=== PATIENT | female | born 1935 | race Caucasian/White ===

== ENCOUNTER 2018-05-24 12:16 | Inpatient (IN) | payer MEDICARE, OTHER ==
--- NOTE | 2018-05-24 12:40 | EDM.PDOC ---
ED HPI GENERAL MEDICAL PROBLEM - General Stated Complaint: WEAKNESS Time Seen by Provider: 05/24/18 12:35 - History of Present Illness INITIAL COMMENTS - FREE TEXT/NARRATIVE: pt comes from assisted living, with concerns for gen weakness, she si normally independent and today she is unable to move around due to gen weakness, pt was seen yesterday by her PCP and treated for UTI and CHF. pt report chronic cough and chronic dyspnea with exertion, denies fever chills or any other associated sx or concerns. has been tolerating her diet well. - Related Data Allergies Allergy/AdvReac Type Severity Reaction Status Date / Time No Known Allergies Allergy Verified 05/24/18 12:36 Home Meds: Home Meds Acetaminophen 1,000 mg PO ASDIRECTED PRN 05/24/18 [History] Cefdinir [Omnicef] 300 mg PO Q12H 05/24/18 [History] Cholecalciferol (Vitamin D3) [Vitamin D3] 1,000 units PO DAILY 05/24/18 [History ] Cyanocobalamin (Vitamin B-12) [Vitamin B-12] 1,000 mcg PO DAILY 05/24/18 [ History] Furosemide 20 mg PO DAILY 05/24/18 [History] Levothyroxine 125 mcg PO ACBREAKFAST 05/24/18 [History] Multivitamin [Multivitamins] 1 each PO DAILY 05/24/18 [History] Naproxen 250 mg PO DAILY 05/24/18 [History] Nitroglycerin [Nitrostat] 0.4 mg SL ASDIRECTED PRN 05/24/18 [History] Omeprazole 20 mg PO DAILY 05/24/18 [History] Potassium Chloride [Klor-Con M20] 20 meq PO DAILY 05/24/18 [History] Sennosides [Senna] 8.6 mg PO DAILY 05/24/18 [History] Sertraline [Zoloft] 25 mg PO DAILY 05/24/18 [History] Simethicone [Gas Relief] 80 mg PO DAILY 05/24/18 [History] hydroCHLOROthiazide [Hydrochlorothiazide] 12.5 mg PO DAILY 05/24/18 [History] Past Medical History HEENT History: Reports: Impaired Vision Cardiovascular History: Reports: Hypertension Gastrointestinal History: Reports: Hiatal Hernia 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: Musculoskeletal History: Reports: Back Pain, Chronic Endocrine/Metabolic History: Reports: Hypothyroidism - Infectious Disease History Infectious Disease History: Reports: Chicken Pox, Measles, Mumps - Past Surgical History HEENT Surgical History: Reports: Cataract Surgery Musculoskeletal Surgical History: Reports: Knee Replacement, Other (See Below) Social & Family History - Family History Family Medical History: Noncontributory - Caffeine Use Caffeine Use: Reports: Coffee ED ROS GENERAL - Review of Systems Review Of Systems: See Below Constitutional: Reports: Fatigue Respiratory: Reports: Shortness of Breath, Cough Cardiovascular: Reports: No Symptoms. Denies: Chest Pain GI/Abdominal: Reports: No Symptoms. Denies: Abdominal Pain, Anorexia Musculoskeletal: Reports: No Symptoms Skin: Reports: No Symptoms Neurological: Reports: No Symptoms. Denies: Confusion, Headache ED EXAM, GENERAL - Physical Exam Exam: See Below Exam Limited By: No Limitations General Appearance: Alert, Mild Distress Nose: Normal Inspection Throat/Mouth: Normal Oropharynx Neck: Carotid Bruit Respiratory/Chest: Rhonchi Cardiovascular: Regular Rate, Rhythm, No Murmur, Other (trace ankle edema ) GI/Abdominal: Normal Bowel Sounds, Soft, Non-Tender Extremities: Normal Inspection, Pedal Edema. No: Leg Pain Skin Exam: Warm Course - Vital Signs Text/Narrative:: labs / CXR results were explained top . pt is wended and deconditioned , assisted living is anable to care for pt safely. will admit to the care of Dr Rao . Dx CHF, gen weakness . ? UTI. Last Recorded V/S: Last Vital Signs Temp 37.1 C 05/24/18 12:16 Pulse 80 05/24/18 12:16 Resp 18 05/24/18 12:16 BP 113/63 05/24/18 12:16 Pulse Ox 93 L 05/24/18 12:16 - Orders/Labs/Meds Orders: Active Orders 24 hr Category Date Time Status Chest 1V Frontal [CR] Stat Exams 05/24/18 12:41 Taken PRO B-TYPE NATRIUR PEPT,BNPPRO [CHEM] Stat Lab 05/24/18 14:24 Ordered Labs: Laboratory Tests 05/24/18 05/24/18 05/24/18 Range/Units 12:50 12:50 12:50 WBC 8.7 (4.5-12.0) X10-3/uL RBC 4.19 (3.23-5.20) x10(6)uL Hgb 12.5 (11.5-15.5) g/dL Hct 38.2 (30.0-51.3) % MCV 90.9 (80-96) fL MCH 29.9 (27.7-33.6) pg MCHC 32.9 (32.2-35.4) g/dL RDW 12.8 (11.5-15.5) % Plt Count 240 (125-369) X10(3)uL MPV 7.7 (7.4-10.4) fL Neut % (Auto) 70.2 (46-82) % Lymph % (Auto) 20.3 (13-37) % [place] % (Auto) 7.7 (4-12) % Eos % (Auto) 1 (1.0-5.0) % Baso % (Auto) 1 (0-2) % Neut # (Auto) 6.0 (1.6-8.3) # Lymph # (Auto) 1.8 (0.6-5.0) # [place] # (Auto) 0.7 (0.0-1.3) # Eos # (Auto) 0.1 (0.0-0.8) # Baso # (Auto) 0.1 (0.0-0.2) # Sodium 135 (135-145) mmol/L Potassium 3.5 (3.5-5.3) mmol/L Chloride 97 L (100-110) mmol/L Carbon Dioxide 30 (21-32) mmol/L BUN 29 H (7-18) mg/dL Creatinine 1.1 H (0.55-1.02) mg/dL Est Cr Clr Drug Dosing TNP Estimated GFR (MDRD) 48 L (>60) BUN/Creatinine Ratio 26.4 H (9-20) Glucose 124 H (80-116) mg/dL Calcium 8.9 (8.6-10.2) mg/dL Total Bilirubin 0.4 (0.1-1.3) mg/dL AST 30 H (5-25) IU/L ALT 10 L (12-36) U/L Alkaline Phosphatase 80 (56-112) IU/L Total Protein 6.5 (6.0-8.0) g/dL Albumin 3.0 L (3.2-4.6) g/dL Globulin 3.5 g/dL Albumin/Globulin Ratio 0.9 TSH, Ultra Sensitive 0.60 (0.36-3.74) IU/mL Urine Color (YELLOW) Urine Appearance (CLEAR) Urine pH (5.0-6.5) Ur Specific [place] (1.010-1.025) Urine Protein (NEGATIVE) mg/dL Urine Glucose (UA) (NORMAL) mg/dL Urine Ketones (NEGATIVE) mg/dL Urine Occult Blood (NEGATIVE) Urine Nitrite (NEGATIVE) Urine Bilirubin (NEGATIVE) Urine Urobilinogen (NEGATIVE) mg/dL Ur Leukocyte Esterase (NEGATIVE) Urine WBC (0-5) Ur Squamous Epith Cells (NS,R,O) Urine Bacteria (NS) 05/24/18 Range/Units 13:16 WBC (4.5-12.0) X10-3/uL RBC (3.23-5.20) x10(6)uL Hgb (11.5-15.5) g/dL Hct (30.0-51.3) % MCV (80-96) fL MCH (27.7-33.6) pg MCHC (32.2-35.4) g/dL RDW (11.5-15.5) % Plt Count (125-369) X10(3)uL MPV (7.4-10.4) fL Neut % (Auto) (46-82) % Lymph % (Auto) (13-37) % [place] % (Auto) (4-12) % Eos % (Auto) (1.0-5.0) % Baso % (Auto) (0-2) % Neut # (Auto) (1.6-8.3) # Lymph # (Auto) (0.6-5.0) # [place] # (Auto) (0.0-1.3) # Eos # (Auto) (0.0-0.8) # Baso # (Auto) (0.0-0.2) # Sodium (135-145) mmol/L Potassium (3.5-5.3) mmol/L Chloride (100-110) mmol/L Carbon Dioxide (21-32) mmol/L BUN (7-18) mg/dL Creatinine (0.55-1.02) mg/dL Est Cr Clr Drug Dosing Estimated GFR (MDRD) (>60) BUN/Creatinine Ratio (9-20) Glucose (80-116) mg/dL Calcium (8.6-10.2) mg/dL Total Bilirubin (0.1-1.3) mg/dL AST (5-25) IU/L ALT (12-36) U/L Alkaline Phosphatase (56-112) IU/L Total Protein (6.0-8.0) g/dL Albumin (3.2-4.6) g/dL Globulin g/dL Albumin/Globulin Ratio TSH, Ultra Sensitive (0.36-3.74) IU/mL Urine Color Yellow (YELLOW) Urine Appearance Slightly cloudy (CLEAR) Urine pH 5.0 (5.0-6.5) Ur Specific [place] 1.020 (1.010-1.025) Urine Protein Negative (NEGATIVE) mg/dL Urine Glucose (UA) Normal (NORMAL) mg/dL Urine Ketones Negative (NEGATIVE) mg/dL Urine Occult Blood Negative (NEGATIVE) Urine Nitrite Negative (NEGATIVE) Urine Bilirubin Negative (NEGATIVE) Urine Urobilinogen Normal (NEGATIVE) mg/dL Ur Leukocyte Esterase Negative (NEGATIVE) Urine WBC 5-10 H (0-5) Ur Squamous Epith Cells Few H (NS,R,O) Urine Bacteria Many H (NS) Departure - Departure Time of Disposition: 14:28 Disposition: Admitted As Inpatient 67 Clinical Impression: CHF (congestive heart failure) - Discharge Information Referrals: Ryan De La Paz PA [Primary Care Provider] - - My Orders Last 24 Hours: My Active Orders 05/24/18 12:41 Chest 1V Frontal [CR] Stat 05/24/18 14:24 PRO B-TYPE NATRIUR PEPT,BNPPRO [CHEM] Stat - Assessment/Plan Last 24 Hours: My Active Orders 05/24/18 12:41 Chest 1V Frontal [CR] Stat 05/24/18 14:24 PRO B-TYPE NATRIUR PEPT,BNPPRO [CHEM] Stat
[2018-05-24] MEDS ORDERED: Albuterol 0.083% 2.5 MG/3 ML Neb Soln NEB PRN (14:29)
[2018-05-24] MEDS ORDERED: Zolpidem 5 MG Tab PO PRN (14:29)
[2018-05-24] MEDS ORDERED: Ondansetron 4 MG/2 ML SDV IV PRN (14:29)
[2018-05-24] MEDS ORDERED: Furosemide 40 MG/4 ML VIAL IVPUSH ONE (14:34)
--- NOTE | 2018-05-24 15:14 | CR ---
INDICATION: Cough. CHEST: AP portable upright view of the chest was obtained 05/24/18 and compared with 04/02/16 and 03/31/16. Bilateral heavy markings interstitially suggest moderately severe interstitial fibrosis and make it impossible to exclude areas of patchy bronchopneumonia superimposed. However, no consolidating pneumonia or significant sized effusion could be identified. The heart did not appear grossly enlarged but may be at the upper limits of normal in size. The aorta is tortuous with calcification in the arch. There appears to be decreased infiltration at the left costophrenic angle, compared with the previous study. IMPRESSION: 1. No definite acute process but impossible to exclude areas of patchy bronchopneumonia superimposed on pulmonary fibrosis. 2. Probable ASHD. MTDD
[2018-05-24] MEDS: Sodium Chloride 0.9% 10 ML Syringe FLUSH PRN ×2 (15:31→16:44)
[2018-05-24] MEDS: Ciprofloxacin in D5W 200 MG in Premix Bag 1 BAG IV SCH ×2 (16:42)
--- NOTE | 2018-05-24 18:20 | PCM.HP ---
H&P History of Present Illness - General Date of Service: 05/24/18 Admit Problem/Dx: Admission Diagnosis/Problem Admission Diagnosis/Problem CHF, Congestive heart failure Source of Information: Patient, Family History Limitations: Reports: No Limitations - History of Present Illness Initial Comments - Free Text/Narative: This is an 82-year-old female patient that is a resident of [facility]. She 's had progressive weakness for several months. She was seen by Ryan VALENZUELA at [facility] and diagnosed with CHF and UTI. She is put on Lasix 20 mg a day and Omnicef. She's also found to be hypokalemic. She went back to [facility] and got to the point where she couldn't ambulate at all and they can transfer so she is brought to the ER. [facility] related to the ER doc that they were not able to take care of her. She has no concerns today. She denies fevers, chills, runny nose, sore throat, cough, shortness of breath, chest pain, abdominal pain. Her daughter states she has some diarrhea yesterday that resolved. She has no nausea or vomiting. She does leak a little urine and has been that way for a long time. She has no dysuria, pyuria, hematuria. Her daughter states that she got a power wheelchair and since then has been using that and getting progressively weaker. lower back Pain Score (Numeric/FACES): 3 - Related Data Allergies/Adverse Reactions: Allergies Allergy/AdvReac Type Severity Reaction Status Date / Time No Known Allergies Allergy Verified 05/24/18 12:36 Home Medications: Home Meds Acetaminophen 1,000 mg PO ASDIRECTED PRN 05/24/18 [History] Cefdinir [Omnicef] 300 mg PO Q12H 05/24/18 [History] Cholecalciferol (Vitamin D3) [Vitamin D3] 2,000 units PO DAILY 05/24/18 [History ] Cyanocobalamin (Vitamin B-12) [Vitamin B-12] 1,000 mcg PO DAILY 05/24/18 [ History] Furosemide 20 mg PO DAILY 05/24/18 [History] Levothyroxine 125 mcg PO ACBREAKFAST 05/24/18 [History] Multivitamin [Multivitamins] 1 each PO DAILY 05/24/18 [History] Naproxen 250 mg PO BID 05/24/18 [History] Nitroglycerin [Nitrostat] 0.4 mg SL ASDIRECTED PRN 05/24/18 [History] Omeprazole 20 mg PO DAILY 05/24/18 [History] Potassium Chloride [Klor-Con M20] 20 meq PO DAILY 05/24/18 [History] Sennosides/Docusate Sodium [Senna-S] 1 tab PO ASDIRECTED PRN 05/24/18 [History] Sertraline [Zoloft] 25 mg PO DAILY 05/24/18 [History] Simethicone [Gas Relief] 160 mg PO QID 05/24/18 [History] hydroCHLOROthiazide [Hydrochlorothiazide] 12.5 mg PO DAILY 05/24/18 [History] Past Medical History HEENT History: Reports: Impaired Vision Cardiovascular History: Reports: Hypertension Respiratory History: Reports: Pneumonia, Recurrent Gastrointestinal History: Reports: Hiatal Hernia 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: Musculoskeletal History: Reports: Back Pain, Chronic Endocrine/Metabolic History: Reports: Hypothyroidism - Infectious Disease History Infectious Disease History: Reports: Chicken Pox, Measles, Mumps - Past Surgical History HEENT Surgical History: Reports: Cataract Surgery Musculoskeletal Surgical History: Reports: Knee Replacement, Other (See Below) Social & Family History - Family History Family Medical History: Noncontributory - Tobacco Use Smoking Status *Q: Former Smoker Years of Tobacco use: 60 Used Tobacco, but Quit: No Month/Year Tobacco Last Used: 160 - Caffeine Use Caffeine Use: Reports: Coffee - Recreational Drug Use Recreational Drug Use: No Other Recreational Drug Type: Patient denies recreational drug use. H&P Review of Systems - Review of Systems: Review Of Systems: See Below General: Reports: No Symptoms, Weakness HEENT: Reports: No Symptoms Pulmonary: Reports: No Symptoms Cardiovascular: Reports: No Symptoms Gastrointestinal: Reports: Diarrhea Genitourinary: Reports: Incontinence Musculoskeletal: Reports: No Symptoms Skin: Reports: No Symptoms Psychiatric: Reports: No Symptoms Neurological: Reports: No Symptoms Hematologic/Lymphatic: Reports: No Symptoms Immunologic: Reports: No Symptoms Exam - Exam Exam: See Below - Vital Signs Vital Signs: Last Vital Signs Temp 96.5 F 05/24/18 15:10 Pulse 77 05/24/18 15:10 Resp 16 05/24/18 15:10 BP 103/62 05/24/18 15:10 Pulse Ox 95 03/19/19 15:10 Weight: 156 lb - Exam General: Alert, Oriented, Cooperative HEENT: Mucosa Moist & [place], Posterior Pharynx Clear, TMs Clear Neck: Supple, Trachea Midline. No: Carotid Bruit, JVD Lungs: Crackles (The bases bilateral) Cardiovascular: Regular Rate, Regular Rhythm, Normal S1, Normal S2. No: Systolic Murmur GI/Abdominal Exam: Normal Bowel Sounds, Soft, Non-Tender, No Organomegaly, No Distention, No Abnormal Bruit, No Mass Back Exam: Normal Inspection Extremities: Normal Inspection, Normal Range of Motion, Non-Tender, No Pedal Edema Skin: Warm, Dry, Intact Neurological: Normal Speech, Normal Tone Neuro Extensive - Mental Status: Alert, Oriented x3, Normal Mood/Affect, Normal Cognition, Memory Intact Neuro Extensive - Motor, Sensory, Reflexes: Other (I didn't ambulate today.) Psychiatric: Alert, Normal Affect, Normal Mood - Patient Data Lab Results Last 24 hrs: Laboratory Results - last 24 hr 05/24/18 05/24/18 05/24/18 Range/Units 12:50 12:50 12:50 WBC 8.7 (4.5-12.0) X10-3/uL RBC 4.19 (3.23-5.20) x10(6)uL Hgb 12.5 (11.5-15.5) g/dL Hct 38.2 (30.0-51.3) % MCV 90.9 (80-96) fL MCH 29.9 (27.7-33.6) pg MCHC 32.9 (32.2-35.4) g/dL RDW 12.8 (11.5-15.5) % Plt Count 240 (125-369) X10(3)uL MPV 7.7 (7.4-10.4) fL Neut % (Auto) 70.2 (46-82) % Lymph % (Auto) 20.3 (13-37) % [place] % (Auto) 7.7 (4-12) % Eos % (Auto) 1 (1.0-5.0) % Baso % (Auto) 1 (0-2) % Neut # (Auto) 6.0 (1.6-8.3) # Lymph # (Auto) 1.8 (0.6-5.0) # [place] # (Auto) 0.7 (0.0-1.3) # Eos # (Auto) 0.1 (0.0-0.8) # Baso # (Auto) 0.1 (0.0-0.2) # Sodium 135 (135-145) mmol/L Potassium 3.5 (3.5-5.3) mmol/L Chloride 97 L (100-110) mmol/L Carbon Dioxide 30 (21-32) mmol/L BUN 29 H (7-18) mg/dL Creatinine 1.1 H (0.55-1.02) mg/dL Est Cr Clr Drug Dosing TNP Estimated GFR (MDRD) 48 L (>60) BUN/Creatinine Ratio 26.4 H (9-20) Glucose 124 H (80-116) mg/dL Calcium 8.9 (8.6-10.2) mg/dL Total Bilirubin 0.4 (0.1-1.3) mg/dL AST 30 H (5-25) IU/L ALT 10 L (12-36) U/L Alkaline Phosphatase 80 (56-112) IU/L NT-Pro-B Natriuret Pep (<=450) pg/mL Total Protein 6.5 (6.0-8.0) g/dL Albumin 3.0 L (3.2-4.6) g/dL Globulin 3.5 g/dL Albumin/Globulin Ratio 0.9 TSH, Ultra Sensitive 0.60 (0.36-3.74) IU/mL Urine Color (YELLOW) Urine Appearance (CLEAR) Urine pH (5.0-6.5) Ur Specific [place] (1.010-1.025) Urine Protein (NEGATIVE) mg/dL Urine Glucose (UA) (NORMAL) mg/dL Urine Ketones (NEGATIVE) mg/dL Urine Occult Blood (NEGATIVE) Urine Nitrite (NEGATIVE) Urine Bilirubin (NEGATIVE) Urine Urobilinogen (NEGATIVE) mg/dL Ur Leukocyte Esterase (NEGATIVE) Urine WBC (0-5) Ur Squamous Epith Cells (NS,R,O) Urine Bacteria (NS) 05/24/18 05/24/18 Range/Units 12:50 13:16 WBC (4.5-12.0) X10-3/uL RBC (3.23-5.20) x10(6)uL Hgb (11.5-15.5) g/dL Hct (30.0-51.3) % MCV (80-96) fL MCH (27.7-33.6) pg MCHC (32.2-35.4) g/dL RDW (11.5-15.5) % Plt Count (125-369) X10(3)uL MPV (7.4-10.4) fL Neut % (Auto) (46-82) % Lymph % (Auto) (13-37) % [place] % (Auto) (4-12) % Eos % (Auto) (1.0-5.0) % Baso % (Auto) (0-2) % Neut # (Auto) (1.6-8.3) # Lymph # (Auto) (0.6-5.0) # [place] # (Auto) (0.0-1.3) # Eos # (Auto) (0.0-0.8) # Baso # (Auto) (0.0-0.2) # Sodium (135-145) mmol/L Potassium (3.5-5.3) mmol/L Chloride (100-110) mmol/L Carbon Dioxide (21-32) mmol/L BUN (7-18) mg/dL Creatinine (0.55-1.02) mg/dL Est Cr Clr Drug Dosing Estimated GFR (MDRD) (>60) BUN/Creatinine Ratio (9-20) Glucose (80-116) mg/dL Calcium (8.6-10.2) mg/dL Total Bilirubin (0.1-1.3) mg/dL AST (5-25) IU/L ALT (12-36) U/L Alkaline Phosphatase (56-112) IU/L NT-Pro-B Natriuret Pep 269 (<=450) pg/mL Total Protein (6.0-8.0) g/dL Albumin (3.2-4.6) g/dL Globulin g/dL Albumin/Globulin Ratio TSH, Ultra Sensitive (0.36-3.74) IU/mL Urine Color Yellow (YELLOW) Urine Appearance Slightly cloudy (CLEAR) Urine pH 5.0 (5.0-6.5) Ur Specific [place] 1.020 (1.010-1.025) Urine Protein Negative (NEGATIVE) mg/dL Urine Glucose (UA) Normal (NORMAL) mg/dL Urine Ketones Negative (NEGATIVE) mg/dL Urine Occult Blood Negative (NEGATIVE) Urine Nitrite Negative (NEGATIVE) Urine Bilirubin Negative (NEGATIVE) Urine Urobilinogen Normal (NEGATIVE) mg/dL Ur Leukocyte Esterase Negative (NEGATIVE) Urine WBC 5-10 H (0-5) Ur Squamous Epith Cells Few H (NS,R,O) Urine Bacteria Many H (NS) Result Diagrams: 05/24/18 12:50 05/24/18 12:50 - Problem List (1) Weakness SNOMED Code(s): 41954049 ICD Code: R53.1 - WEAKNESS Status: Acute Current Visit: Yes (2) Palliative care status SNOMED Code(s): 511460116 ICD Code: Z51.5 - ENCOUNTER FOR PALLIATIVE CARE Status: Acute Current Visit: Yes (3) Gastroenteritis SNOMED Code(s): 40595154 ICD Code: K52.9 - NONINFECTIVE GASTROENTERITIS AND COLITIS, UNSPECIFIED Status: Acute Current Visit: No (4) UTI (urinary tract infection) SNOMED Code(s): 44838803 ICD Code: N39.0 - URINARY TRACT INFECTION, SITE NOT SPECIFIED Status: Acute Current Visit: No Qualifiers: Urinary tract infection type: acute cystitis Problem List Initiated/Reviewed/Updated: Yes Orders Last 24hrs: Active Orders 24 hr Category Date Time Status Patient Status [ADT] Routine ADT 05/24/18 14:29 Active Oxygen Therapy [RC] PRN Care 05/24/18 14:29 Active RT Aerosol Therapy [RC] ASDIRECTED Care 05/24/18 14:33 Active Up With Assistance [RC] ASDIRECTED Care 05/24/18 14:29 Active VTE/DVT Education [RC] Per Unit Routine Care 05/24/18 14:29 Active Vital Signs [RC] 00,04,08,12,16,20 Care 05/24/18 14:29 Active Regular Diet [DIET] Diet 05/24/18 Dinner Active Albuterol [Proventil Neb Soln] Med 05/24/18 14:29 Active 2.5 mg NEB Q2H PRN Ciprofloxacin in D5W [Cipro in D5W 200 MG/100 ML] 200 Med 05/24/18 16:00 Active mg Premix Bag 1 bag IV Q12H Ondansetron [Zofran] Med 05/24/18 14:29 Active 4 mg IV Q4H PRN Sodium Chloride 0.9% [Saline Flush] Med 05/24/18 14:29 Active 10 ml FLUSH ASDIRECTED PRN Zolpidem [Ambien] Med 05/24/18 14:29 Active 5 mg PO BEDTIME PRN Saline Lock Insert [OM.PC] Routine Oth 05/24/18 14:29 Ordered Resuscitation Status Routine Resus Stat 05/24/18 14:29 Ordered Medication Orders Albuterol (Proventil Neb Soln) 2.5 mg NEB Q2H PRN PRN Reason: Shortness Of Breath/wheezing Ciprofloxacin/Dextrose 200 mg/ (Premix) 100 mls @ 100 mls/hr IV Q12H MARYAM Last Admin: 05/24/18 16:42 Dose: 100 mls/hr Ondansetron HCl (Zofran) 4 mg IV Q4H PRN PRN Reason: Nausea/Vomiting Sodium Chloride (Saline Flush) 10 ml FLUSH ASDIRECTED PRN PRN Reason: Keep Vein Open Last Admin: 05/24/18 16:44 Dose: 10 ml Admin: 05/24/18 15:31 Dose: 10 ml Zolpidem Tartrate (Ambien) 5 mg PO BEDTIME PRN PRN Reason: Sleep Assessment/Plan Comment:: 1. Admit for inpatient 2. Diet regular 3. Up with assist 4. PT/OT/certified social workers in health care 5. VTE with Lovenox SCD 6. Hold potassium and Lasix at this time. 7. Review chest x-ray report which shows no pneumonia or CHF. Cannot rule out pneumonia. He does have basilar crackles so we'll assess as she stays here. 8. Rocephin 1 g a day IV for UTI. Wait for culture.
[2018-05-24] MEDS ORDERED: Sodium Chloride 0.9% 1,000 ML IV SCH (18:30)
[2018-05-24] MEDS ORDERED: Enoxaparin 30 MG/0.3 ML Syringe SUBCUT SCH (18:30)
[2018-05-24] MEDS ORDERED: Albuterol 0.083% 2.5 MG/3 ML Neb Soln NEB SCH (19:00)
[2018-05-24] MEDS: Albuterol 0.083% 2.5 MG/3 ML Neb Soln NEB SCH (20:05)
[2018-05-25] MEDS: Ciprofloxacin in D5W 200 MG in Premix Bag 1 BAG IV SCH ×2 (03:15)
[2018-05-25] MEDS: Albuterol 0.083% 2.5 MG/3 ML Neb Soln NEB SCH ×4 (06:35→20:49)
--- NOTE | 2018-05-25 08:05 | PCM.PN ---
- General Info Date of Service: 05/25/18 Admission Dx/Problem (Free Text): Patient has no complaints today. She denies dysuria, pyuria, hematuria, fevers, chills, chest pain, shortness breath or leg swelling. The nurses report that she is a 2 person assist has to be coached frequently when she walked to the bathroom. - Patient Data Vitals - Most Recent: Last Vital Signs Temp 97.7 F 05/25/18 07:23 Pulse 98 05/25/18 07:23 Resp 30 H 05/25/18 07:23 BP 88/53 L 05/25/18 07:23 Pulse Ox 93 L 05/25/18 07:23 Weight - Most Recent: 158 lb 3.2 oz I&O - Last 24 Hours: Intake & Output 05/24/18 05/25/18 05/25/18 22:59 06:59 14:59 Intake Total 200 890 Balance 200 890 Lab Results Last 24 Hours: Laboratory Results - last 24 hr 05/24/18 05/24/18 05/24/18 Range/Units 12:50 12:50 12:50 WBC 8.7 (4.5-12.0) X10-3/uL RBC 4.19 (3.23-5.20) x10(6)uL Hgb 12.5 (11.5-15.5) g/dL Hct 38.2 (30.0-51.3) % MCV 90.9 (80-96) fL MCH 29.9 (27.7-33.6) pg MCHC 32.9 (32.2-35.4) g/dL RDW 12.8 (11.5-15.5) % Plt Count 240 (125-369) X10(3)uL MPV 7.7 (7.4-10.4) fL Neut % (Auto) 70.2 (46-82) % Lymph % (Auto) 20.3 (13-37) % [place] % (Auto) 7.7 (4-12) % Eos % (Auto) 1 (1.0-5.0) % Baso % (Auto) 1 (0-2) % Neut # (Auto) 6.0 (1.6-8.3) # Lymph # (Auto) 1.8 (0.6-5.0) # Gr[place]gs # (Auto) 0.7 (0.0-1.3) # Eos # (Auto) 0.1 (0.0-0.8) # Baso # (Auto) 0.1 (0.0-0.2) # Sodium 135 (135-145) mmol/L Potassium 3.5 (3.5-5.3) mmol/L Chloride 97 L (100-110) mmol/L Carbon Dioxide 30 (21-32) mmol/L BUN 29 H (7-18) mg/dL Creatinine 1.1 H (0.55-1.02) mg/dL Est Cr Clr Drug Dosing TNP Estimated GFR (MDRD) 48 L (>60) BUN/Creatinine Ratio 26.4 H (9-20) Glucose 124 H (80-116) mg/dL Calcium 8.9 (8.6-10.2) mg/dL Total Bilirubin 0.4 (0.1-1.3) mg/dL AST 30 H (5-25) IU/L ALT 10 L (12-36) U/L Alkaline Phosphatase 80 (56-112) IU/L NT-Pro-B Natriuret Pep (<=450) pg/mL Total Protein 6.5 (6.0-8.0) g/dL Albumin 3.0 L (3.2-4.6) g/dL Globulin 3.5 g/dL Albumin/Globulin Ratio 0.9 TSH, Ultra Sensitive 0.60 (0.36-3.74) IU/mL Urine Color (YELLOW) Urine Appearance (CLEAR) Urine pH (5.0-6.5) Ur Specific [place] (1.010-1.025) Urine Protein (NEGATIVE) mg/dL Urine Glucose (UA) (NORMAL) mg/dL Urine Ketones (NEGATIVE) mg/dL Urine Occult Blood (NEGATIVE) Urine Nitrite (NEGATIVE) Urine Bilirubin (NEGATIVE) Urine Urobilinogen (NEGATIVE) mg/dL Ur Leukocyte Esterase (NEGATIVE) Urine WBC (0-5) Ur Squamous Epith Cells (NS,R,O) Urine Bacteria (NS) 05/24/18 05/24/18 Range/Units 12:50 13:16 WBC (4.5-12.0) X10-3/uL RBC (3.23-5.20) x10(6)uL Hgb (11.5-15.5) g/dL Hct (30.0-51.3) % MCV (80-96) fL MCH (27.7-33.6) pg MCHC (32.2-35.4) g/dL RDW (11.5-15.5) % Plt Count (125-369) X10(3)uL MPV (7.4-10.4) fL Neut % (Auto) (46-82) % Lymph % (Auto) (13-37) % [place]gs % (Auto) (4-12) % Eos % (Auto) (1.0-5.0) % Baso % (Auto) (0-2) % Neut # (Auto) (1.6-8.3) # Lymph # (Auto) (0.6-5.0) # [place]gs # (Auto) (0.0-1.3) # Eos # (Auto) (0.0-0.8) # Baso # (Auto) (0.0-0.2) # Sodium (135-145) mmol/L Potassium (3.5-5.3) mmol/L Chloride (100-110) mmol/L Carbon Dioxide (21-32) mmol/L BUN (7-18) mg/dL Creatinine (0.55-1.02) mg/dL Est Cr Clr Drug Dosing Estimated GFR (MDRD) (>60) BUN/Creatinine Ratio (9-20) Glucose (80-116) mg/dL Calcium (8.6-10.2) mg/dL Total Bilirubin (0.1-1.3) mg/dL AST (5-25) IU/L ALT (12-36) U/L Alkaline Phosphatase (56-112) IU/L NT-Pro-B Natriuret Pep 269 (<=450) pg/mL Total Protein (6.0-8.0) g/dL Albumin (3.2-4.6) g/dL Globulin g/dL Albumin/Globulin Ratio TSH, Ultra Sensitive (0.36-3.74) IU/mL Urine Color Yellow (YELLOW) Urine Appearance Slightly cloudy (CLEAR) Urine pH 5.0 (5.0-6.5) Ur Specific [place] 1.020 (1.010-1.025) Urine Protein Negative (NEGATIVE) mg/dL Urine Glucose (UA) Normal (NORMAL) mg/dL Urine Ketones Negative (NEGATIVE) mg/dL Urine Occult Blood Negative (NEGATIVE) Urine Nitrite Negative (NEGATIVE) Urine Bilirubin Negative (NEGATIVE) Urine Urobilinogen Normal (NEGATIVE) mg/dL Ur Leukocyte Esterase Negative (NEGATIVE) Urine WBC 5-10 H (0-5) Ur Squamous Epith Cells Few H (NS,R,O) Urine Bacteria Many H (NS) Med Orders - Current: Current Medications Albuterol (Proventil Neb Soln) 2.5 mg NEB QIDRT [facility] Last Admin: 05/25/18 06:35 Dose: 2.5 mg Enoxaparin Sodium (Lovenox) 30 mg SUBCUT Q24H [facility] Last Admin: 05/24/18 19:50 Dose: 30 mg Ciprofloxacin/Dextrose 200 mg/ (Premix) 100 mls @ 100 mls/hr IV Q12H [facility] Last Admin: 05/25/18 03:15 Dose: 100 mls/hr Sodium Chloride (Normal Saline) 1,000 mls @ 75 mls/hr IV ASDIRECTED [facility] Last Admin: 05/24/18 19:50 Dose: 75 mls/hr Ondansetron HCl (Zofran) 4 mg IV Q4H PRN PRN Reason: Nausea/Vomiting Sodium Chloride (Saline Flush) 10 ml FLUSH ASDIRECTED PRN PRN Reason: Keep Vein Open Last Admin: 05/24/18 16:44 Dose: 10 ml Zolpidem Tartrate (Ambien) 5 mg PO BEDTIME PRN PRN Reason: Sleep Discontinued Medications Albuterol (Proventil Neb Soln) 2.5 mg NEB Q2H PRN PRN Reason: Shortness Of Breath/wheezing Albuterol (Proventil Neb Soln) 2.5 mg NEB Q6H [facility] Furosemide (Lasix) 40 mg IVPUSH NOW ONE Stop: 05/24/18 14:35 Last Admin: 05/24/18 15:30 Dose: 40 mg - Exam General: Alert, Oriented, Cooperative Lungs: Normal Respiratory Effort, Crackles (Bases bilateral) Cardiovascular: Regular Rate, Regular Rhythm Extremities: No Pedal Edema - Problem List & Annotations (1) Weakness SNOMED Code(s): 19556640 Code(s): R53.1 - WEAKNESS Status: Acute Current Visit: Yes (2) Palliative care status SNOMED Code(s): 759713090 Code(s): Z51.5 - ENCOUNTER FOR PALLIATIVE CARE Status: Acute Current Visit: Yes (3) Gastroenteritis SNOMED Code(s): 33887027 Code(s): K52.9 - NONINFECTIVE GASTROENTERITIS AND COLITIS, UNSPECIFIED Status: Acute Current Visit: No (4) UTI (urinary tract infection) SNOMED Code(s): 38796889 Code(s): N39.0 - URINARY TRACT INFECTION, SITE NOT SPECIFIED Status: Acute Current Visit: No Qualifiers: Urinary tract infection type: acute cystitis - Problem List Review Problem List Initiated/Reviewed/Updated: Yes - My Orders Last 24 Hours: My Active Orders 05/24/18 18:22 Consult to Occupational Therapy [OT Evaluation and Treatment] [CONS] Routine Consult to Physical Therapy [PT Evaluation and Treatment] [CONS] Routine 05/24/18 18:23 SCD [Sequential Compression Device] [OM.PC] Routine 05/24/18 18:30 Enoxaparin [Lovenox] 30 mg SUBCUT Q24H Sodium Chloride 0.9% [Normal Saline] 1,000 ml IV ASDIRECTED 05/24/18 18:52 RT Aerosol Therapy [RC] ASDIRECTED 05/24/18 21:00 Albuterol [Proventil Neb Soln] 2.5 mg NEB QIDRT - Plan Plan:: 1. PT/OT/social service to see her today. 2. Recheck chest x-ray two-view. Patient does have bibasilar rails. First x-ray was portable and states he cannot rule out bronchopneumonia. 3. UA was mildly positive. She was treated at the clinic so many try to get a copy of her UA in the clinic.
[2018-05-25] MEDS ORDERED: Nitroglycerin 0.4 MG Tab.SL SL PRN (08:07)
[2018-05-25] MEDS: Levothyroxine 125 MCG Tab PO SCH (09:51)
[2018-05-25] MEDS: Hydrochlorothiazide 12.5 MG Cap PO SCH (09:51)
[2018-05-25] MEDS: Naproxen 250 MG Tab PO SCH ×2 (09:52→20:48)
[2018-05-25] MEDS: Potassium Chloride 20 MEQ Tab.ER PO SCH (09:52)
[2018-05-25] MEDS: Cyanocobalamin (Vitamin B12) 1,000 MCG Tab PO SCH (09:53)
[2018-05-25] MEDS: Simethicone 80 MG Tab.Chew PO SCH ×4 (09:53→20:49)
[2018-05-25] MEDS: Pantoprazole 40 MG Tab.CR PO SCH (09:53)
[2018-05-25] MEDS: Multivitamin Tab PO SCH (09:53)
[2018-05-25] MEDS: Cholecalciferol (Vitamin D3) 1,000 Unit Tab PO SCH (09:54)
[2018-05-25] MEDS: Sertraline 25 MG Tab PO SCH (09:54)
--- NOTE | 2018-05-25 10:51 | CR ---
INDICATION: Rales in bases of the lungs. CHEST: PA and lateral views of the chest were obtained 05/25/18 and compared with 05/24/18 and 04/02/16, again revealing heavy markings in the right upper middle lung field - upper lobe area mainly and both lung bases, as well as minimally in the left mid lung field. These areas most likely represent fibrosis. However, the possibility of superimposed areas of patchy pneumonia, especially in the right mid lung field and both lung bases, cannot be excluded, as previously. No significant change is identified, compared with the previous examination. Findings were also compatible with COPD, ASHD with heart slightly enlarged, and tortuous calcified aorta, as well as demineralization, which may be on the basis of osteomalacia or osteoporosis. MTDD
[2018-05-25] MEDS: Ciprofloxacin 250 MG Tab PO SCH (20:48)
[2018-05-25] MEDS: Enoxaparin 40 MG/0.4 ML Syringe SUBCUT SCH (20:48)
[2018-05-26] MEDS: Levothyroxine 125 MCG Tab PO SCH (06:53)
[2018-05-26] MEDS: Albuterol 0.083% 2.5 MG/3 ML Neb Soln NEB SCH ×4 (06:53→20:48)
[2018-05-26] MEDS: Pantoprazole 40 MG Tab.CR PO SCH (06:53)
--- NOTE | 2018-05-26 08:18 | PCM.PN ---
- General Info Date of Service: 05/26/18 Admission Dx/Problem (Free Text): Patient is without concerns. She denies dysuria, pyuria, hematuria, fevers, chills, shortness of breath or chest pain. Says she is very weak and needs a lot of coaching with 2 people assist. - Patient Data Vitals - Most Recent: Last Vital Signs Temp 98.5 F 05/26/18 00:00 Pulse 92 05/26/18 00:00 Resp 18 05/26/18 00:00 BP 125/72 05/26/18 00:00 Pulse Ox 91 L 05/26/18 00:00 Weight - Most Recent: 159 lb 3.2 oz Med Orders - Current: Current Medications Acetaminophen (Tylenol Extra Strength) 1,000 mg PO TID PRN PRN Reason: PAIN Albuterol (Proventil Neb Soln) 2.5 mg NEB QIDRT [facility] Last Admin: 05/26/18 06:53 Dose: 2.5 mg Cholecalciferol (Vitamin D3) 2,000 units PO DAILY [facility] Last Admin: 05/25/18 09:54 Dose: 2,000 units Ciprofloxacin (Ciprofloxacin Hcl) 250 mg PO BID [facility] Last Admin: 05/25/18 20:48 Dose: 250 mg Cyanocobalamin (Vitamin B12) 1,000 mcg PO DAILY [facility] Last Admin: 05/25/18 09:53 Dose: 1,000 mcg Enoxaparin Sodium (Lovenox) 40 mg SUBCUT Q24H [facility] Last Admin: 05/25/18 20:48 Dose: 40 mg Hydrochlorothiazide (Hydrochlorothiazide) 12.5 mg PO DAILY [facility] Last Admin: 05/25/18 09:51 Dose: 12.5 mg Levothyroxine Sodium (Levothyroxine) 125 mcg PO DAILY@0600 [facility] Last Admin: 05/26/18 06:53 Dose: 125 mcg Multivitamins/Minerals/Vitamin C (Tab-A-Tesfaye) 1 tab PO DAILY [facility] Last Admin: 05/25/18 09:53 Dose: 1 tab Naproxen (Naprosyn) 250 mg PO BID [facility] Last Admin: 05/25/18 20:48 Dose: 250 mg Nitroglycerin (Nitrostat) 0.4 mg SL ASDIRECTED PRN PRN Reason: Chest Pain Ondansetron HCl (Zofran) 4 mg IV Q4H PRN PRN Reason: Nausea/Vomiting Pantoprazole Sodium (Protonix) 40 mg PO DAILY@0600 [facility] Last Admin: 05/26/18 06:53 Dose: 40 mg Potassium Chloride (Klor-Con M20) 20 meq PO DAILY [facility] Last Admin: 05/25/18 09:52 Dose: 20 meq Senna/Docusate Sodium (Senna Plus) 1 tab PO BID PRN PRN Reason: Constipation Sertraline HCl (Zoloft) 25 mg PO DAILY [facility] Last Admin: 05/25/18 09:54 Dose: 25 mg Simethicone (Simethicone) 160 mg PO QID [facility] Last Admin: 05/25/18 20:49 Dose: 160 mg Sodium Chloride (Saline Flush) 10 ml FLUSH ASDIRECTED PRN PRN Reason: Keep Vein Open Last Admin: 05/24/18 16:44 Dose: 10 ml Zolpidem Tartrate (Ambien) 5 mg PO BEDTIME PRN PRN Reason: Sleep Discontinued Medications Albuterol (Proventil Neb Soln) 2.5 mg NEB Q2H PRN PRN Reason: Shortness Of Breath/wheezing Albuterol (Proventil Neb Soln) 2.5 mg NEB Q6H [facility] Enoxaparin Sodium (Lovenox) 30 mg SUBCUT Q24H [facility] Last Admin: 05/24/18 19:50 Dose: 30 mg Furosemide (Lasix) 40 mg IVPUSH NOW ONE Stop: 05/24/18 14:35 Last Admin: 05/24/18 15:30 Dose: 40 mg Ciprofloxacin/Dextrose 200 mg/ (Premix) 100 mls @ 100 mls/hr IV Q12H [facility] Last Admin: 05/25/18 03:15 Dose: 100 mls/hr Sodium Chloride (Normal Saline) 1,000 mls @ 75 mls/hr IV ASDIRECTED [facility] Last Admin: 05/24/18 19:50 Dose: 75 mls/hr - Exam General: Alert, Oriented, Cooperative Lungs: Clear to Auscultation, Normal Respiratory Effort Cardiovascular: Regular Rate, Regular Rhythm, No Murmurs Extremities: No Pedal Edema - Problem List & Annotations (1) Weakness SNOMED Code(s): 74649966 Code(s): R53.1 - WEAKNESS Status: Acute Current Visit: Yes (2) Palliative care status SNOMED Code(s): 452958556 Code(s): Z51.5 - ENCOUNTER FOR PALLIATIVE CARE Status: Acute Current Visit: Yes (3) Gastroenteritis SNOMED Code(s): 23622180 Code(s): K52.9 - NONINFECTIVE GASTROENTERITIS AND COLITIS, UNSPECIFIED Status: Acute Current Visit: No (4) UTI (urinary tract infection) SNOMED Code(s): 01742542 Code(s): N39.0 - URINARY TRACT INFECTION, SITE NOT SPECIFIED Status: Acute Current Visit: No Qualifiers: Urinary tract infection type: acute cystitis (5) Chronic renal failure, stage 3 (moderate) SNOMED Code(s): 26171427, 774263559 Code(s): N18.3 - CHRONIC KIDNEY DISEASE, STAGE 3 (MODERATE) Status: Acute Current Visit: Yes (6) Elevated LFTs SNOMED Code(s): 136284471, 764126032 Code(s): R94.5 - ABNORMAL RESULTS OF LIVER FUNCTION STUDIES Status: Acute Current Visit: Yes - Problem List Review Problem List Initiated/Reviewed/Updated: Yes - My Orders Last 24 Hours: My Active Orders 05/25/18 08:06 Convert IV to Saline Lock [OM.PC] Routine 05/25/18 08:07 Acetaminophen [Tylenol Extra Strength] 1,000 mg PO TID PRN Docusate Sodium/Sennosides [Senna Plus] 1 tab PO BID PRN Nitroglycerin [Nitrostat] 0.4 mg SL ASDIRECTED PRN 05/25/18 08:30 Levothyroxine 125 mcg PO DAILY@0600 05/25/18 09:00 Cholecalciferol (Vitamin D3) [Vitamin D3] 2,000 units PO DAILY Cyanocobalamin (Vitamin B12) [Vitamin B12] 1,000 mcg PO DAILY Multivitamins [Tab-A-Tesfaye] 1 tab PO DAILY Naproxen [Naprosyn] 250 mg PO BID Pantoprazole [ProTONIX] 40 mg PO DAILY@0600 Potassium Chloride [Klor-Con M20] 20 meq PO DAILY Sertraline [Zoloft] 25 mg PO DAILY Simethicone 160 mg PO QID hydroCHLOROthiazide 12.5 mg PO DAILY 05/25/18 20:00 Enoxaparin [Lovenox] 40 mg SUBCUT Q24H 05/25/18 21:00 Ciprofloxacin [Ciprofloxacin HCl] 250 mg PO BID - Assessment Assessment:: 1. Continue PT/OT and consider swing bed if she qualifies. 2. Recheck UA tomorrow. - Plan Plan:: 1. PT/OT/social service to see her today. 2. Recheck chest x-ray two-view. Patient does have bibasilar rails. First x-ray was portable and states he cannot rule out bronchopneumonia. 3. UA was mildly positive. She was treated at the clinic so many try to get a copy of her UA in the clinic.
[2018-05-26] MEDS: Hydrochlorothiazide 12.5 MG Cap PO SCH (08:45)
[2018-05-26] MEDS: Simethicone 80 MG Tab.Chew PO SCH ×4 (08:45→20:48)
[2018-05-26] MEDS: Naproxen 250 MG Tab PO SCH ×2 (08:45→20:47)
[2018-05-26] MEDS: Multivitamin Tab PO SCH (08:45)
[2018-05-26] MEDS: Ciprofloxacin 250 MG Tab PO SCH (08:45)
[2018-05-26] MEDS: Sertraline 25 MG Tab PO SCH (08:45)
[2018-05-26] MEDS: Potassium Chloride 20 MEQ Tab.ER PO SCH (08:45)
[2018-05-26] MEDS: Cyanocobalamin (Vitamin B12) 1,000 MCG Tab PO SCH (08:45)
[2018-05-26] MEDS: Cholecalciferol (Vitamin D3) 1,000 Unit Tab PO SCH (08:45)
--- NOTE | 2018-05-26 17:59 | PCM.SN ---
- Free Text/Narrative Note: The patient when she came in says she's had a cough for long time. Today she says only been there for a week. So I stopped her Cipro and start Levaquin 250 mg once a day to cover both the tract and the lungs.
[2018-05-26] MEDS ORDERED: Levofloxacin 250 MG Tab PO SCH (18:00)
[2018-05-26] MEDS: Enoxaparin 40 MG/0.4 ML Syringe SUBCUT SCH (20:47)
[2018-05-27] MEDS: Pantoprazole 40 MG Tab.CR PO SCH (05:09)
[2018-05-27] MEDS: Levothyroxine 125 MCG Tab PO SCH (05:09)
[2018-05-27] MEDS: Albuterol 0.083% 2.5 MG/3 ML Neb Soln NEB SCH ×4 (05:30→20:26)
[2018-05-27] MEDS: Hydrochlorothiazide 12.5 MG Cap PO SCH (08:27)
[2018-05-27] MEDS: Potassium Chloride 20 MEQ Tab.ER PO SCH (08:28)
[2018-05-27] MEDS: Multivitamin Tab PO SCH (08:28)
[2018-05-27] MEDS: Naproxen 250 MG Tab PO SCH ×2 (08:28→20:26)
[2018-05-27] MEDS: Simethicone 80 MG Tab.Chew PO SCH ×4 (08:28→20:26)
[2018-05-27] MEDS: Sertraline 25 MG Tab PO SCH (08:29)
[2018-05-27] MEDS: Cyanocobalamin (Vitamin B12) 1,000 MCG Tab PO SCH (08:29)
[2018-05-27] MEDS: Cholecalciferol (Vitamin D3) 1,000 Unit Tab PO SCH (08:29)
[2018-05-27] MEDS: Acetaminophen 500 MG Tab PO PRN ×2 (09:18→15:51)
--- NOTE | 2018-05-27 09:18 | PCM.PN ---
- General Info Date of Service: 05/27/18 Subjective Update: Malathi is an 82 female complaining weakness unable to move .Needs 1 assist to ambulate. She also gets short of breath and her pulse is reported to be going above 100 with any exertion. - Review of Systems General: Reports: Fatigue HEENT: Reports: No Symptoms Pulmonary: Reports: Shortness of Breath Cardiovascular: Denies: Chest Pain Gastrointestinal: Reports: No Symptoms Genitourinary: Reports: No Symptoms Musculoskeletal: Reports: No Symptoms - Patient Data Vitals - Most Recent: Last Vital Signs Temp 98.6 F 05/27/18 08:00 Pulse 104 H 05/27/18 08:00 Resp 20 05/27/18 08:00 BP 99/60 05/27/18 08:00 Pulse Ox 93 L 05/27/18 08:00 Weight - Most Recent: 72.178 kg Lab Results Last 24 Hours: Laboratory Results - last 24 hr 05/27/18 Range/Units 02:14 Urine Color Yellow (YELLOW) Urine Appearance Clear (CLEAR) Urine pH 7.0 H (5.0-6.5) Ur Specific [place] 1.010 (1.010-1.025) Urine Protein Negative (NEGATIVE) mg/dL Urine Glucose (UA) Normal (NORMAL) mg/dL Urine Ketones Negative (NEGATIVE) mg/dL Urine Occult Blood Negative (NEGATIVE) Urine Nitrite Negative (NEGATIVE) Urine Bilirubin Negative (NEGATIVE) Urine Urobilinogen Normal (NEGATIVE) mg/dL Ur Leukocyte Esterase Negative (NEGATIVE) Urine RBC 0-5 (0-5) Urine WBC 0-5 (0-5) Ur Squamous Epith Cells Occasional (NS,R,O) Calcium Oxalate Crystal Moderate H (NS) Urine Bacteria Rare H (NS) Urine Mucus Few H (NS) Med Orders - Current: Current Medications Acetaminophen (Tylenol Extra Strength) 1,000 mg PO TID PRN PRN Reason: PAIN Albuterol (Proventil Neb Soln) 2.5 mg NEB QIDRT [facility] Last Admin: 05/27/18 05:30 Dose: 2.5 mg Carvedilol (Coreg) 3.125 mg PO BID [facility] Cholecalciferol (Vitamin D3) 2,000 units PO DAILY [facility] Last Admin: 05/27/18 08:29 Dose: 2,000 units Cyanocobalamin (Vitamin B12) 1,000 mcg PO DAILY [facility] Last Admin: 05/27/18 08:29 Dose: 1,000 mcg Enoxaparin Sodium (Lovenox) 40 mg SUBCUT Q24H [facility] Last Admin: 05/26/18 20:47 Dose: 40 mg Furosemide (Lasix) 20 mg PO DAILY [facility] Levothyroxine Sodium (Levothyroxine) 125 mcg PO DAILY@0600 [facility] Last Admin: 05/27/18 05:09 Dose: 125 mcg Multivitamins/Minerals/Vitamin C (Tab-A-Tesfaye) 1 tab PO DAILY [facility] Last Admin: 05/27/18 08:28 Dose: 1 tab Naproxen (Naprosyn) 250 mg PO BID [facility] Last Admin: 05/27/18 08:28 Dose: 250 mg Nitroglycerin (Nitrostat) 0.4 mg SL ASDIRECTED PRN PRN Reason: Chest Pain Ondansetron HCl (Zofran) 4 mg IV Q4H PRN PRN Reason: Nausea/Vomiting Pantoprazole Sodium (Protonix) 40 mg PO DAILY@0600 [facility] Last Admin: 05/27/18 05:09 Dose: 40 mg Potassium Chloride (Klor-Con M20) 20 meq PO DAILY [facility] Last Admin: 05/27/18 08:28 Dose: 20 meq Senna/Docusate Sodium (Senna Plus) 1 tab PO BID PRN PRN Reason: Constipation Sertraline HCl (Zoloft) 25 mg PO DAILY [facility] Last Admin: 05/27/18 08:29 Dose: 25 mg Simethicone (Simethicone) 160 mg PO QID [facility] Last Admin: 05/27/18 08:28 Dose: 160 mg Sodium Chloride (Saline Flush) 10 ml FLUSH ASDIRECTED PRN PRN Reason: Keep Vein Open Last Admin: 05/24/18 16:44 Dose: 10 ml Zolpidem Tartrate (Ambien) 5 mg PO BEDTIME PRN PRN Reason: Sleep Discontinued Medications Albuterol (Proventil Neb Soln) 2.5 mg NEB Q2H PRN PRN Reason: Shortness Of Breath/wheezing Albuterol (Proventil Neb Soln) 2.5 mg NEB Q6H [facility] Ciprofloxacin (Ciprofloxacin Hcl) 250 mg PO BID [facility] Last Admin: 05/26/18 08:45 Dose: 250 mg Enoxaparin Sodium (Lovenox) 30 mg SUBCUT Q24H [facility] Last Admin: 05/24/18 19:50 Dose: 30 mg Furosemide (Lasix) 40 mg IVPUSH NOW ONE Stop: 05/24/18 14:35 Last Admin: 05/24/18 15:30 Dose: 40 mg Hydrochlorothiazide (Hydrochlorothiazide) 12.5 mg PO DAILY [facility] Last Admin: 05/27/18 08:27 Dose: 12.5 mg Ciprofloxacin/Dextrose 200 mg/ (Premix) 100 mls @ 100 mls/hr IV Q12H [facility] Last Admin: 05/25/18 03:15 Dose: 100 mls/hr Sodium Chloride (Normal Saline) 1,000 mls @ 75 mls/hr IV ASDIRECTED [facility] Last Admin: 05/24/18 19:50 Dose: 75 mls/hr Levofloxacin (Levaquin) 250 mg PO Q24H [facility] Last Admin: 05/26/18 19:49 Dose: 250 mg - Exam General: Alert HEENT: Pupils Equal Neck: Supple Lungs: Crackles, Rales Cardiovascular: Regular Rate - Problem List & Annotations (1) CHF (congestive heart failure) SNOMED Code(s): 08314788 Code(s): I50.9 - HEART FAILURE, UNSPECIFIED Status: Acute Current Visit: Yes Qualifiers: Heart failure chronicity: unspecified (2) Palliative care status SNOMED Code(s): 973928995 Code(s): Z51.5 - ENCOUNTER FOR PALLIATIVE CARE Status: Acute Current Visit: Yes (3) Weakness SNOMED Code(s): 67307023 Code(s): R53.1 - WEAKNESS Status: Acute Current Visit: Yes (4) UTI (urinary tract infection) SNOMED Code(s): 89662351 Code(s): N39.0 - URINARY TRACT INFECTION, SITE NOT SPECIFIED Status: Acute Current Visit: No Qualifiers: Urinary tract infection type: acute cystitis - Problem List Review Problem List Initiated/Reviewed/Updated: Yes - My Orders Last 24 Hours: My Active Orders 05/27/18 09:08 Echo Comp wo Cont [US] Urgent 05/27/18 09:15 Furosemide [Lasix] 20 mg PO DAILY 05/27/18 21:00 Carvedilol [Coreg] 3.125 mg PO BID 05/28/18 05:11 CBC WITH AUTO DIFF [HEME] AM COMPREHENSIVE METABOLIC PN,CMP [CHEM] AM PRO B-TYPE NATRIUR PEPT,BNPPRO [CHEM] DAILY - Assessment Assessment:: 1. Continue PT/OT and consider swing bed if she qualifies. 2. Recheck UA tomorrow. - Plan Plan:: I will discontinue the antibiotics as the urine looks clear. I will also stop hydrochlorothiazide in favor of Lasix 20 mg once a day. Of ordered for an echocardiogram and a repeat lab especially basic panel and BMP in the morning.She may switch to SB today or tomorrow
[2018-05-27] MEDS: Furosemide 20 MG Tab PO SCH (11:29)
[2018-05-27] MEDS: Enoxaparin 40 MG/0.4 ML Syringe SUBCUT SCH (20:01)
[2018-05-27] MEDS: Carvedilol 3.125 MG Tab PO SCH (20:25)
[2018-05-28] MEDS: Levothyroxine 125 MCG Tab PO SCH (06:12)
[2018-05-28] MEDS: Albuterol 0.083% 2.5 MG/3 ML Neb Soln NEB SCH (06:12)
[2018-05-28] MEDS: Pantoprazole 40 MG Tab.CR PO SCH (06:12)
[2018-05-28 08:04] VITALS: BP 108/72
[2018-05-28] MEDS: Acetaminophen 500 MG Tab PO PRN (08:13)
[2018-05-28] MEDS: Naproxen 250 MG Tab PO SCH (08:15)
[2018-05-28] MEDS: Potassium Chloride 20 MEQ Tab.ER PO SCH (08:15)
[2018-05-28] MEDS: Carvedilol 3.125 MG Tab PO SCH (08:15)
[2018-05-28] MEDS: Furosemide 20 MG Tab PO SCH (08:15)
[2018-05-28] MEDS: Cyanocobalamin (Vitamin B12) 1,000 MCG Tab PO SCH (08:16)
[2018-05-28] MEDS: Simethicone 80 MG Tab.Chew PO SCH (08:16)
[2018-05-28] MEDS: Multivitamin Tab PO SCH (08:16)
[2018-05-28] MEDS: Cholecalciferol (Vitamin D3) 1,000 Unit Tab PO SCH (08:16)
[2018-05-28] MEDS: Sertraline 25 MG Tab PO SCH (08:17)
--- NOTE | 2018-05-28 09:34 | PCM.PN ---
- General Info Date of Service: 05/28/18 Subjective Update: Malathi is an 82 female complaining weakness unable to move .Needs 1 assist to ambulate. She also gets short of breath and her pulse is reported to be going above 100 with any exertion. Functional Status: Reports: Pain Controlled - Review of Systems General: Reports: Fatigue, Malaise HEENT: Reports: No Symptoms Pulmonary: Reports: Shortness of Breath Cardiovascular: Reports: Edema Gastrointestinal: Reports: No Symptoms Genitourinary: Reports: No Symptoms - Patient Data Vitals - Most Recent: Last Vital Signs Temp 97.9 F 05/28/18 08:00 Pulse 94 05/28/18 08:15 Resp 20 05/28/18 08:00 BP 108/72 05/28/18 08:15 Pulse Ox 94 L 05/28/18 08:00 Weight - Most Recent: 71.781 kg I&O - Last 24 Hours: Intake & Output 05/27/18 05/28/18 05/28/18 22:59 06:59 14:59 Intake Total 300 Balance 300 Lab Results Last 24 Hours: Laboratory Results - last 24 hr 05/28/18 05/28/18 05/28/18 Range/Units 06:20 06:20 06:20 WBC 8.4 (4.5-12.0) X10-3/uL RBC 3.81 (3.23-5.20) x10(6)uL Hgb 11.5 (11.5-15.5) g/dL Hct 33.8 (30.0-51.3) % MCV 88.7 (80-96) fL MCH 30.3 (27.7-33.6) pg MCHC 34.1 (32.2-35.4) g/dL RDW 12.8 (11.5-15.5) % Plt Count 241 (125-369) X10(3)uL MPV 7.8 (7.4-10.4) fL Neut % (Auto) 55.9 (46-82) % Lymph % (Auto) 28.4 (13-37) % Cowley % (Auto) 7.8 (4-12) % Eos % (Auto) 7 H (1.0-5.0) % Baso % (Auto) 1 (0-2) % Neut # (Auto) 4.6 (1.6-8.3) # Lymph # (Auto) 2.4 (0.6-5.0) # Cowley # (Auto) 0.7 (0.0-1.3) # Eos # (Auto) 0.6 (0.0-0.8) # Baso # (Auto) 0.1 (0.0-0.2) # Sodium 132 L (135-145) mmol/L Potassium 3.9 (3.5-5.3) mmol/L Chloride 97 L (100-110) mmol/L Carbon Dioxide 27 (21-32) mmol/L BUN 19 H D (7-18) mg/dL Creatinine 1.3 H (0.55-1.02) mg/dL Est Cr Clr Drug Dosing 26.84 mL/min Estimated GFR (MDRD) 39 L (>60) BUN/Creatinine Ratio 14.6 (9-20) Glucose 96 (80-116) mg/dL Calcium 9.0 (8.6-10.2) mg/dL Total Bilirubin 0.5 (0.1-1.3) mg/dL AST 32 H (5-25) IU/L ALT 12 D (12-36) U/L Alkaline Phosphatase 72 (56-112) IU/L NT-Pro-B Natriuret Pep 291 (<=450) pg/mL Total Protein 6.0 (6.0-8.0) g/dL Albumin 2.7 L (3.2-4.6) g/dL Globulin 3.3 g/dL Albumin/Globulin Ratio 0.8 Med Orders - Current: Current Medications Acetaminophen (Tylenol Extra Strength) 1,000 mg PO TID PRN PRN Reason: PAIN Last Admin: 05/28/18 08:13 Dose: 1,000 mg Albuterol (Proventil Neb Soln) 2.5 mg NEB QIDRT [facility] Last Admin: 05/28/18 06:12 Dose: 2.5 mg Carvedilol (Coreg) 3.125 mg PO BID [facility] Last Admin: 05/28/18 08:15 Dose: 3.125 mg Cholecalciferol (Vitamin D3) 2,000 units PO DAILY [facility] Last Admin: 05/28/18 08:16 Dose: 2,000 units Cyanocobalamin (Vitamin B12) 1,000 mcg PO DAILY [facility] Last Admin: 05/28/18 08:16 Dose: 1,000 mcg Enoxaparin Sodium (Lovenox) 40 mg SUBCUT Q24H [facility] Last Admin: 05/27/18 20:01 Dose: 40 mg Furosemide (Lasix) 20 mg PO DAILY [facility] Last Admin: 05/28/18 08:15 Dose: 20 mg Levothyroxine Sodium (Levothyroxine) 125 mcg PO DAILY@0600 [facility] Last Admin: 05/28/18 06:12 Dose: 125 mcg Multivitamins/Minerals/Vitamin C (Tab-A-Tesfaye) 1 tab PO DAILY [facility] Last Admin: 05/28/18 08:16 Dose: 1 tab Naproxen (Naprosyn) 250 mg PO BID [facility] Last Admin: 05/28/18 08:15 Dose: 250 mg Nitroglycerin (Nitrostat) 0.4 mg SL ASDIRECTED PRN PRN Reason: Chest Pain Ondansetron HCl (Zofran) 4 mg IV Q4H PRN PRN Reason: Nausea/Vomiting Pantoprazole Sodium (Protonix) 40 mg PO DAILY@0600 [facility] Last Admin: 05/28/18 06:12 Dose: 40 mg Potassium Chloride (Klor-Con M20) 20 meq PO DAILY [facility] Last Admin: 05/28/18 08:15 Dose: 20 meq Senna/Docusate Sodium (Senna Plus) 1 tab PO BID PRN PRN Reason: Constipation Sertraline HCl (Zoloft) 25 mg PO DAILY [facility] Last Admin: 05/28/18 08:17 Dose: 25 mg Simethicone (Simethicone) 160 mg PO QID [facility] Last Admin: 05/28/18 08:16 Dose: 160 mg Sodium Chloride (Saline Flush) 10 ml FLUSH ASDIRECTED PRN PRN Reason: Keep Vein Open Last Admin: 05/24/18 16:44 Dose: 10 ml Zolpidem Tartrate (Ambien) 5 mg PO BEDTIME PRN PRN Reason: Sleep Discontinued Medications Albuterol (Proventil Neb Soln) 2.5 mg NEB Q2H PRN PRN Reason: Shortness Of Breath/wheezing Albuterol (Proventil Neb Soln) 2.5 mg NEB Q6H MARYAM Ciprofloxacin (Ciprofloxacin Hcl) 250 mg PO BID [facility] Last Admin: 05/26/18 08:45 Dose: 250 mg Enoxaparin Sodium (Lovenox) 30 mg SUBCUT Q24H [facility] Last Admin: 05/24/18 19:50 Dose: 30 mg Furosemide (Lasix) 40 mg IVPUSH NOW ONE Stop: 05/24/18 14:35 Last Admin: 05/24/18 15:30 Dose: 40 mg Hydrochlorothiazide (Hydrochlorothiazide) 12.5 mg PO DAILY [facility] Last Admin: 05/27/18 08:27 Dose: 12.5 mg Ciprofloxacin/Dextrose 200 mg/ (Premix) 100 mls @ 100 mls/hr IV Q12H [facility] Last Admin: 05/25/18 03:15 Dose: 100 mls/hr Sodium Chloride (Normal Saline) 1,000 mls @ 75 mls/hr IV ASDIRECTED [facility] Last Admin: 05/24/18 19:50 Dose: 75 mls/hr Levofloxacin (Levaquin) 250 mg PO Q24H [facility] Last Admin: 05/26/18 19:49 Dose: 250 mg - Exam General: Alert, Oriented HEENT: Pupils Equal Neck: Supple Lungs: Crackles Cardiovascular: Regular Rate - Problem List & Annotations (1) CHF (congestive heart failure) SNOMED Code(s): 86486961 Code(s): I50.9 - HEART FAILURE, UNSPECIFIED Status: Acute Current Visit: Yes Qualifiers: Heart failure chronicity: unspecified (2) Palliative care status SNOMED Code(s): 293333448 Code(s): Z51.5 - ENCOUNTER FOR PALLIATIVE CARE Status: Acute Current Visit: Yes (3) Weakness SNOMED Code(s): 53527775 Code(s): R53.1 - WEAKNESS Status: Acute Current Visit: Yes (4) UTI (urinary tract infection) SNOMED Code(s): 92238651 Code(s): N39.0 - URINARY TRACT INFECTION, SITE NOT SPECIFIED Status: Acute Current Visit: No Qualifiers: Urinary tract infection type: acute cystitis - Problem List Review Problem List Initiated/Reviewed/Updated: Yes - My Orders Last 24 Hours: My Active Orders 05/27/18 09:08 Echo Comp wo Cont [US] Urgent 05/27/18 09:15 Furosemide [Lasix] 20 mg PO DAILY 05/27/18 21:00 Carvedilol [Coreg] 3.125 mg PO BID - Assessment Assessment:: 1. Continue PT/OT and consider swing bed if she qualifies. 2. Recheck UA tomorrow. - Plan Plan:: I will discharge on Lasix,to SB for PT/OT.
--- NOTE | 2018-05-28 10:05 | DISCH ---
DISCHARGE DATE: 05/28/2018 PROCEDURES: None. ADMISSION DIAGNOSES: 1. Weakness and debility. 2. Urinary tract infection. 3. Congestive heart failure. DISCHARGE DIAGNOSES: 1. Congestive heart failure due to diastolic dysfunction. 2. History of urinary tract infection. 3. General weakness and difficulty with ambulation. BRIEF HISTORY AND HOSPITAL COURSE: This is an 82-year-old female who was brought in from [facility] with weakness and possible UTI. She had difficulty with ambulation. Urine initially showed 5 to 10 white cells, that was treated with Levaquin for 3 days. Echocardiogram showed mild diastolic dysfunction, grade 1, but the ejection fraction was 60%. She had great difficulty in ambulation, even with a walker, needing 1 to 2 assists. She was admitted to [facility] on 05/28/2018 for rehab. I discontinued hydrochlorothiazide in favor of Lasix 20 mg once a day. Her vital signs remained stable. Please note that I spent more than 35 minutes in the discharge of the patient. /[id number] KLAUDIA/PEDRO
== END 2018-05-28 10:05 | disposition swing bed (61) | DRG 292 ==
LOC: FB.ED 12:16 → FB.MS 14:31
PROVIDERS: ADMIT Family Medicine; ATTEND Family Medicine
DX: I13.0 Hypertensive heart and chronic kidney disease with heart failure and stage 1 through stage 4 chronic kidney disease, or unspecified chronic kidney disease (principal); I50.30 Unspecified diastolic (congestive) heart failure; N39.0 Urinary tract infection, site not specified; Z51.5 Encounter for palliative care; N18.3 Chronic kidney disease, stage 3 (moderate); E03.9 Hypothyroidism, unspecified; K52.9 Noninfective gastroenteritis and colitis, unspecified; Z87.891 Personal history of nicotine dependence; R94.5 Abnormal results of liver function studies; Z87.01 Personal history of pneumonia (recurrent); K44.9 Diaphragmatic hernia without obstruction or gangrene; M54.9 Dorsalgia, unspecified; G89.29 Other chronic pain; H54.7 Unspecified visual loss; Z96.659 Presence of unspecified artificial knee joint; R53.1 Weakness; R26.2 Difficulty in walking, not elsewhere classified
CPT/HCPCS: 36415; 71045; 71046; 80053; 81001; 83880; 84443; 85025; 93306; 94640; 97110-GO; 97110-GP; 97116-GP; 97161-GP; 97165-GO; 97530-GO; 97530-GP; 97535-GO; 99285-25; A9270-GY; J0744; J1650; J1940; J7030

== ENCOUNTER 2018-05-28 10:05 | Inpatient (IN) | payer MEDICARE, OTHER ==
[2018-05-28] MEDS ORDERED: Nitroglycerin 0.4 MG Tab.SL SL PRN (10:25)
--- NOTE | 2018-05-28 10:29 | PCM.HP ---
H&P History of Present Illness - General Date of Service: 05/28/18 Admit Problem/Dx: Admission Diagnosis/Problem Admission Diagnosis/Problem Weakness Source of Information: Patient History Limitations: Reports: No Limitations - History of Present Illness Initial Comments - Free Text/Narative: Malathi is admitted to swing bed for rehabilitation. She was admitted to the acute care because of a urinary tract infection, generalized weakness and CHF - thought to be due to diastolic dysfunction. She has great difficulty with activities of daily living and ambulation without assistance. - Related Data Allergies/Adverse Reactions: Allergies Allergy/AdvReac Type Severity Reaction Status Date / Time No Known Allergies Allergy Verified 05/24/18 12:36 Home Medications: Home Meds Acetaminophen 1,000 mg PO ASDIRECTED PRN 05/24/18 [History] Cholecalciferol (Vitamin D3) [Vitamin D3] 2,000 units PO DAILY 05/24/18 [History ] Cyanocobalamin (Vitamin B-12) [Vitamin B-12] 1,000 mcg PO DAILY 05/24/18 [ History] Furosemide 20 mg PO DAILY 05/24/18 [History] Levothyroxine 125 mcg PO ACBREAKFAST 05/24/18 [History] Multivitamin [Multivitamins] 1 each PO DAILY 05/24/18 [History] Naproxen 250 mg PO BID 05/24/18 [History] Nitroglycerin [Nitrostat] 0.4 mg SL ASDIRECTED PRN 05/24/18 [History] Omeprazole 20 mg PO DAILY 05/24/18 [History] Potassium Chloride [Klor-Con M20] 20 meq PO DAILY 05/24/18 [History] Sennosides/Docusate Sodium [Senna-S] 1 tab PO ASDIRECTED PRN 05/24/18 [History] Sertraline [Zoloft] 25 mg PO DAILY 05/24/18 [History] Simethicone [Gas Relief] 160 mg PO QID 05/24/18 [History] Furosemide [Lasix] 20 mg PO DAILY 30 Days #30 tablet 05/28/18 [Rx] Past Medical History HEENT History: Reports: Impaired Vision Cardiovascular History: Reports: Hypertension Respiratory History: Reports: Pneumonia, Recurrent Gastrointestinal History: Reports: Hiatal Hernia ELDERLY COMPANION History: Reports: Musculoskeletal History: Reports: Back Pain, Chronic Endocrine/Metabolic History: Reports: Hypothyroidism - Infectious Disease History Infectious Disease History: Reports: Chicken Pox, Measles, Mumps - Past Surgical History HEENT Surgical History: Reports: Cataract Surgery Musculoskeletal Surgical History: Reports: Knee Replacement, Other (See Below) Social & Family History - Family History Family Medical History: Noncontributory - Caffeine Use Caffeine Use: Reports: Coffee H&P Review of Systems - Review of Systems: Review Of Systems: ROS reveals no pertinent complaints other than HPI. Exam - Exam Exam: See Below - Exam General: Alert, Oriented, 4 HEENT: PERRLA, Hearing Intact, Mucosa Moist & [place], Nares Patent, Normal Nasal Septum, Posterior Pharynx Clear, Conjunctiva Clear, EOMI, EACs Clear, TMs Clear Neck: Supple, Trachea Midline, 2 Lungs: Crackles, Rales Cardiovascular: Regular Rate, Regular Rhythm GI/Abdominal Exam: Normal Bowel Sounds, Soft, Non-Tender, No Organomegaly, No Distention, No Abnormal Bruit, No Mass, Pelvis Stable (Female) Exam: Deferred Rectal (Female) Exam: Deferred Back Exam: Normal Inspection, Full Range of Motion, NT Extremities: Normal Inspection, Normal Range of Motion, Non-Tender, No Pedal Edema, Normal Capillary Refill Skin: Warm, Dry, Intact Neurological: Cranial Nerves Intact, Reflexes Equal Bilateral Neuro Extensive - Mental Status: Alert, Oriented x3, Normal Mood/Affect, Normal Cognition Neuro Extensive - Motor, Sensory, Reflexes: CN II-XII Intact, Normal Gait, Normal Reflexes Psychiatric: Alert, Normal Affect, Normal Mood - Problem List (1) Weakness SNOMED Code(s): 62891943 ICD Code: R53.1 - WEAKNESS Status: Acute Current Visit: Yes (2) CHF (congestive heart failure) SNOMED Code(s): 51096783 ICD Code: I50.9 - HEART FAILURE, UNSPECIFIED Status: Acute Current Visit : No (3) Palliative care status SNOMED Code(s): 213347989 ICD Code: Z51.5 - ENCOUNTER FOR PALLIATIVE CARE Status: Acute Current Visit: No (4) Weakness SNOMED Code(s): 67502728 ICD Code: R53.1 - WEAKNESS Status: Acute Current Visit: No Problem List Initiated/Reviewed/Updated: Yes Orders Last 24hrs: Active Orders 24 hr Category Date Time Status Patient Status [ADT] Routine ADT 05/28/18 10:24 Ordered Height and Weight [RC] WEEKLY Care 05/28/18 10:24 Ordered Oxygen Therapy [RC] PRN Care 05/28/18 10:24 Ordered Up With Assistance [RC] ASDIRECTED Care 05/28/18 10:23 Ordered VTE/DVT Education [RC] Per Unit Routine Care 05/28/18 10:24 Ordered Vital Signs [RC] PER UNIT ROUTINE Care 05/28/18 10:24 Ordered OT Evaluation and Treatment [CONS] Routine Cons 05/28/18 10:23 Ordered PT Evaluation and Treatment [CONS] Routine Cons 05/28/18 10:23 Ordered Regular Diet [DIET] Diet 05/28/18 Breakfast Ordered Acetaminophen [Tylenol Extra Strength] Med 05/28/18 10:25 Ordered 1,000 mg PO ASDIRECTED PRN Cholecalciferol (Vitamin D3) [Vitamin D3] Med 05/29/18 09:00 Ordered 2,000 units PO DAILY Cyanocobalamin (Vitamin B12) [Vitamin B12] Med 05/29/18 09:00 Ordered 1,000 mcg PO DAILY Docusate Sodium/Sennosides [Senna Plus] Med 05/28/18 10:25 Ordered 1 tab PO ASDIRECTED PRN Furosemide [Lasix] Med 05/29/18 09:00 Ordered 20 mg PO DAILY Furosemide [Lasix] Med 05/29/18 09:00 Ordered 20 mg PO DAILY Levothyroxine Med 05/29/18 07:30 Ordered 125 mcg PO ACBREAKFAST Multivitamin [Multivitamins] Med 05/29/18 09:00 Ordered 1 each PO DAILY Naproxen [Naprosyn] Med 05/28/18 21:00 Ordered 250 mg PO BID Nitroglycerin [Nitrostat] Med 05/28/18 10:25 Ordered 0.4 mg SL ASDIRECTED PRN Omeprazole [Omeprazole] Med 05/29/18 09:00 Ordered 20 mg PO DAILY Potassium Chloride [Klor-Con M20] Med 05/29/18 09:00 Ordered 20 meq PO DAILY Sertraline [Zoloft] Med 05/29/18 09:00 Ordered 25 mg PO DAILY Simethicone Med 05/28/18 13:00 Ordered 160 mg PO QID Resuscitation Status Routine Resus Stat 05/28/18 10:23 Ordered
[2018-05-28] MEDS: Simethicone 80 MG Tab.Chew PO SCH ×3 (13:00→20:52)
[2018-05-28] MEDS: Acetaminophen 500 MG Tab PO PRN (18:04)
[2018-05-28] MEDS: Naproxen 250 MG Tab PO SCH (20:52)
[2018-05-29] MEDS: Pantoprazole 40 MG Tab.CR PO SCH (06:24)
[2018-05-29] MEDS: Levothyroxine 125 MCG Tab PO SCH (06:24)
[2018-05-29] MEDS ORDERED: Furosemide 20 MG Tab PO SCH (09:00)
[2018-05-29] MEDS: Naproxen 250 MG Tab PO SCH ×2 (09:34→20:35)
[2018-05-29] MEDS: Simethicone 80 MG Tab.Chew PO SCH ×4 (09:34→20:35)
[2018-05-29] MEDS: Cyanocobalamin (Vitamin B12) 1,000 MCG Tab PO SCH (09:34)
[2018-05-29] MEDS: Cholecalciferol (Vitamin D3) 1,000 Unit Tab PO SCH (09:35)
[2018-05-29] MEDS: Sertraline 25 MG Tab PO SCH (09:35)
[2018-05-29] MEDS: Potassium Chloride 20 MEQ Tab.ER PO SCH (09:36)
[2018-05-29] MEDS: Furosemide 20 MG Tab PO SCH (09:36)
[2018-05-29] MEDS: Multivitamins,Therapeutic Tab PO SCH (10:07)
[2018-05-30] MEDS: Levothyroxine 125 MCG Tab PO SCH (06:48)
[2018-05-30] MEDS: Pantoprazole 40 MG Tab.CR PO SCH (06:48)
[2018-05-30] MEDS: Furosemide 20 MG Tab PO SCH (08:10)
[2018-05-30] MEDS: Naproxen 250 MG Tab PO SCH ×2 (08:10→20:46)
[2018-05-30] MEDS: Potassium Chloride 20 MEQ Tab.ER PO SCH (08:10)
[2018-05-30] MEDS: Cholecalciferol (Vitamin D3) 1,000 Unit Tab PO SCH (08:11)
[2018-05-30] MEDS: Cyanocobalamin (Vitamin B12) 1,000 MCG Tab PO SCH (08:11)
[2018-05-30] MEDS: Simethicone 80 MG Tab.Chew PO SCH ×4 (08:11→20:46)
[2018-05-30] MEDS: Sertraline 25 MG Tab PO SCH (08:11)
[2018-05-30] MEDS: Multivitamins,Therapeutic Tab PO SCH (10:03)
[2018-05-31] MEDS: Pantoprazole 40 MG Tab.CR PO SCH (05:56)
[2018-05-31] MEDS: Levothyroxine 125 MCG Tab PO SCH (05:56)
[2018-05-31] MEDS: Naproxen 250 MG Tab PO SCH ×2 (09:33→20:44)
[2018-05-31] MEDS: Furosemide 20 MG Tab PO SCH (09:33)
[2018-05-31] MEDS: Potassium Chloride 20 MEQ Tab.ER PO SCH (09:33)
[2018-05-31] MEDS: Multivitamins,Therapeutic Tab PO SCH (09:33)
[2018-05-31] MEDS: Simethicone 80 MG Tab.Chew PO SCH ×4 (09:33→20:47)
[2018-05-31] MEDS: Cholecalciferol (Vitamin D3) 1,000 Unit Tab PO SCH (09:34)
[2018-05-31] MEDS: Cyanocobalamin (Vitamin B12) 1,000 MCG Tab PO SCH (09:34)
[2018-05-31] MEDS: Sertraline 25 MG Tab PO SCH (09:34)
[2018-06-01] MEDS: Levothyroxine 125 MCG Tab PO SCH (05:19)
[2018-06-01] MEDS: Pantoprazole 40 MG Tab.CR PO SCH (05:19)
[2018-06-01] MEDS: Furosemide 20 MG Tab PO SCH (08:22)
[2018-06-01] MEDS: Naproxen 250 MG Tab PO SCH ×2 (08:22→20:37)
[2018-06-01] MEDS: Potassium Chloride 20 MEQ Tab.ER PO SCH (08:22)
[2018-06-01] MEDS: Multivitamins,Therapeutic Tab PO SCH (08:23)
[2018-06-01] MEDS: Cyanocobalamin (Vitamin B12) 1,000 MCG Tab PO SCH (08:23)
[2018-06-01] MEDS: Cholecalciferol (Vitamin D3) 1,000 Unit Tab PO SCH (08:23)
[2018-06-01] MEDS: Simethicone 80 MG Tab.Chew PO SCH ×4 (08:23→20:37)
[2018-06-01] MEDS: Sertraline 25 MG Tab PO SCH (08:24)
[2018-06-02] MEDS: Levothyroxine 125 MCG Tab PO SCH (07:08)
[2018-06-02] MEDS: Pantoprazole 40 MG Tab.CR PO SCH (07:08)
[2018-06-02] MEDS: Potassium Chloride 20 MEQ Tab.ER PO SCH (08:34)
[2018-06-02] MEDS: Cyanocobalamin (Vitamin B12) 1,000 MCG Tab PO SCH (08:35)
[2018-06-02] MEDS: Multivitamins,Therapeutic Tab PO SCH (08:35)
[2018-06-02] MEDS: Furosemide 20 MG Tab PO SCH (08:35)
[2018-06-02] MEDS: Sertraline 25 MG Tab PO SCH (08:35)
[2018-06-02] MEDS: Simethicone 80 MG Tab.Chew PO SCH ×4 (08:35→20:44)
[2018-06-02] MEDS: Naproxen 250 MG Tab PO SCH ×2 (08:35→20:43)
[2018-06-02] MEDS: Cholecalciferol (Vitamin D3) 1,000 Unit Tab PO SCH (08:35)
[2018-06-03] MEDS: Levothyroxine 125 MCG Tab PO SCH (06:11)
[2018-06-03] MEDS: Pantoprazole 40 MG Tab.CR PO SCH (06:11)
[2018-06-03] MEDS: Potassium Chloride 20 MEQ Tab.ER PO SCH (08:20)
[2018-06-03] MEDS: Furosemide 20 MG Tab PO SCH (08:20)
[2018-06-03] MEDS: Naproxen 250 MG Tab PO SCH ×2 (08:20→20:24)
[2018-06-03] MEDS: Cyanocobalamin (Vitamin B12) 1,000 MCG Tab PO SCH (08:20)
[2018-06-03] MEDS: Simethicone 80 MG Tab.Chew PO SCH ×4 (08:20→20:24)
[2018-06-03] MEDS: Sertraline 25 MG Tab PO SCH (08:20)
[2018-06-03] MEDS: Multivitamins,Therapeutic Tab PO SCH (08:20)
[2018-06-03] MEDS: Cholecalciferol (Vitamin D3) 1,000 Unit Tab PO SCH (08:20)
--- NOTE | 2018-06-03 11:23 | PN ---
DATE SEEN: 06/03/2018 SUBJECTIVE: Carolyne Servin is an 82-year-old female admitted through swing bed. Complicated infection, weakness, diastolic dysfunction, and difficulty with activities. MEDICATIONS: Med lists were reviewed and appropriate. Presently on medically important: 1. Furosemide. 2. Levothyroxine. 3. Nitroglycerin. 4. Protonix. 5. Potassium. 6. Sertraline. 7. Simvastatin. 8. Simethicone. LABORATORY STUDIES: None outstanding. OBJECTIVE: VITAL SIGNS: 36.9, 109/65, 14, 90, weight 71 kg. GENERAL: In good spirits. Bright, appropriate. ENT: Mouth and oropharynx clear. NECK: Benign. CHEST: Decreased breath sounds at both bases. HEART: No ectopy or murmur. ABDOMEN: Benign. ASSESSMENT: General fatigue, underlying congestive heart failure. PLAN: Medications, care, and treatment on board. Therapy timing appropriate. We will recheck a urine given UTI issues. /[id number] SUJATA/PEDRO
[2018-06-04] MEDS: Pantoprazole 40 MG Tab.CR PO SCH (06:03)
[2018-06-04] MEDS: Levothyroxine 125 MCG Tab PO SCH (06:03)
[2018-06-04] MEDS: Potassium Chloride 20 MEQ Tab.ER PO SCH (08:35)
[2018-06-04] MEDS: Naproxen 250 MG Tab PO SCH ×2 (08:36→20:05)
[2018-06-04] MEDS: Furosemide 20 MG Tab PO SCH (08:36)
[2018-06-04] MEDS: Simethicone 80 MG Tab.Chew PO SCH ×4 (08:36→20:05)
[2018-06-04] MEDS: Multivitamins,Therapeutic Tab PO SCH (08:37)
[2018-06-04] MEDS: Cyanocobalamin (Vitamin B12) 1,000 MCG Tab PO SCH (08:37)
[2018-06-04] MEDS: Sertraline 25 MG Tab PO SCH (08:38)
[2018-06-04] MEDS: Cholecalciferol (Vitamin D3) 1,000 Unit Tab PO SCH (08:38)
[2018-06-04] MEDS: Acetaminophen 500 MG Tab PO PRN (10:08)
--- NOTE | 2018-06-04 10:55 | PN ---
DATE SEEN: 06/04/2018 SUBJECTIVE: Carolyne Servin is an 82-year-old female, seen routinely. Weakness. Congestive heart failure. Plan to return to [facility]. LABORATORY STUDIES: 06/03/2018, urinalysis clear. Moderate leukocytes, cultures to follow. No other laboratory studies. MEDICATIONS: Reviewed and appropriate. PHYSICAL EXAMINATION: VITAL SIGNS: 36.7, pulse 117, 112/67, 97, and 20. GENERAL: Bright, awake, alert, appropriate. Speech was fluent. NECK: Benign. Thyroid small. CHEST: Decreased breath sounds at both bases. HEART: Occasional ectopy. ABDOMEN: Benign. ASSESSMENT: General malaise, stable. Congestive heart failure. PLAN: Medications, care, and treatment appropriate. Conversation with family on Wednesday, son in [place], and daughter more local, discharge plans from there. /[id number] SUJATA/PEDRO
[2018-06-05] MEDS: Levothyroxine 125 MCG Tab PO SCH (05:05)
[2018-06-05] MEDS: Pantoprazole 40 MG Tab.CR PO SCH (05:05)
[2018-06-05] MEDS: Multivitamins,Therapeutic Tab PO SCH (08:08)
[2018-06-05] MEDS: Naproxen 250 MG Tab PO SCH ×2 (08:08→20:32)
[2018-06-05] MEDS: Cyanocobalamin (Vitamin B12) 1,000 MCG Tab PO SCH (08:08)
[2018-06-05] MEDS: Simethicone 80 MG Tab.Chew PO SCH ×4 (08:09→20:32)
[2018-06-05] MEDS: Furosemide 20 MG Tab PO SCH (08:09)
[2018-06-05] MEDS: Sertraline 25 MG Tab PO SCH (08:09)
[2018-06-05] MEDS: Potassium Chloride 20 MEQ Tab.ER PO SCH (08:10)
[2018-06-05] MEDS: Cholecalciferol (Vitamin D3) 1,000 Unit Tab PO SCH (08:10)
--- NOTE | 2018-06-05 11:47 | PN ---
DATE SEEN: 06/05/2018 SUBJECTIVE: Carolyne Servin is seen today for review. Declining health, weakness, congestive heart failure, and complicating issues. She has been in swing bed since 05/28/2018. Activities of daily living continue to be complicated. Visit intervention: Son in [place], daughter more local, plans accordingly. LABORATORY STUDIES: On 06/03/2018, urinalysis 0-5 red cells, 5-10 white cells. PHYSICAL EXAMINATION: VITAL SIGNS: 36.4, 96, 126/69, 16, and 93% room air. GENERAL: Appropriate, observant. In good spirits. NECK: Benign. No JVD. CHEST: Decreased breath sounds but reasonably good air exchange. HEART: Occasional ectopy, S4 present. No S3. ABDOMEN: Benign. ASSESSMENT: Congestive heart failure. PLAN: Medications, care and treatment appropriate. Discussion for transfer to long-term upcoming week. /[id number] SUJATA/PEDRO
[2018-06-05] MEDS: Acetaminophen 500 MG Tab PO PRN (17:32)
[2018-06-06] MEDS: Pantoprazole 40 MG Tab.CR PO SCH (06:19)
[2018-06-06] MEDS: Levothyroxine 125 MCG Tab PO SCH (06:19)
[2018-06-06] MEDS: Potassium Chloride 20 MEQ Tab.ER PO SCH (09:20)
[2018-06-06] MEDS: Furosemide 20 MG Tab PO SCH (09:21)
[2018-06-06] MEDS: Cyanocobalamin (Vitamin B12) 1,000 MCG Tab PO SCH (09:21)
[2018-06-06] MEDS: Naproxen 250 MG Tab PO SCH ×2 (09:21→22:19)
[2018-06-06] MEDS: Simethicone 80 MG Tab.Chew PO SCH ×4 (09:21→22:19)
[2018-06-06] MEDS: Multivitamins,Therapeutic Tab PO SCH (09:21)
[2018-06-06] MEDS: Cholecalciferol (Vitamin D3) 1,000 Unit Tab PO SCH (09:22)
[2018-06-06] MEDS: Sertraline 25 MG Tab PO SCH (09:22)
--- NOTE | 2018-06-06 11:22 | PN ---
DATE SEEN: 06/06/2018 SUBJECTIVE: Carolyne Servin is an 82-year-old female, admitted for general weakness. Previously lived at [facility]. Caregiving discussions upcoming and planned. Most recent lab tests, 06/03/2018. Urinalysis unremarkable. No culture required. PHYSICAL EXAMINATION: VITAL SIGNS: 36.6, 121/70, 17, and 97. GENERAL: A cachectic-appearing female. Cooperative, conversant. HEENT: Mouth and oropharynx clear. Fair dentition. NECK: Benign. CHEST: Clear in all lung bowles. HEART: No ectopy or murmur. ABDOMEN: Benign. ASSESSMENT: General decline. PLAN: Has now been in swing bed since 05/28/2018, little in the way of progress, discharge home under review. /[id number] SUJATA/PEDRO
[2018-06-07] MEDS: Pantoprazole 40 MG Tab.CR PO SCH (06:08)
[2018-06-07] MEDS: Levothyroxine 125 MCG Tab PO SCH (06:08)
[2018-06-07] MEDS: Simethicone 80 MG Tab.Chew PO SCH ×4 (08:51→20:01)
[2018-06-07] MEDS: Potassium Chloride 20 MEQ Tab.ER PO SCH (08:51)
[2018-06-07] MEDS: Naproxen 250 MG Tab PO SCH ×2 (08:51→20:01)
[2018-06-07] MEDS: Furosemide 20 MG Tab PO SCH (08:51)
[2018-06-07] MEDS: Cyanocobalamin (Vitamin B12) 1,000 MCG Tab PO SCH (08:52)
[2018-06-07] MEDS: Multivitamins,Therapeutic Tab PO SCH (08:52)
[2018-06-07] MEDS: Cholecalciferol (Vitamin D3) 1,000 Unit Tab PO SCH (08:52)
[2018-06-07] MEDS: Sertraline 25 MG Tab PO SCH (08:52)
--- NOTE | 2018-06-07 11:20 | PN ---
DATE SEEN: 06/07/2018 Malathi is a young lady seen today for review. Uncertain of discharge plans. Family visit, conversation today, we will address that through the course of the day. She voices no particular complaints or concerns. Care on board. /[id number] SUJATA/PEDRO
[2018-06-08] MEDS: Levothyroxine 125 MCG Tab PO SCH (06:23)
[2018-06-08] MEDS: Pantoprazole 40 MG Tab.CR PO SCH (06:23)
[2018-06-08] MEDS: Furosemide 20 MG Tab PO SCH (09:43)
[2018-06-08] MEDS: Potassium Chloride 20 MEQ Tab.ER PO SCH (09:43)
[2018-06-08] MEDS: Naproxen 250 MG Tab PO SCH ×2 (09:44→20:35)
[2018-06-08] MEDS: Sertraline 25 MG Tab PO SCH (09:44)
[2018-06-08] MEDS: Cholecalciferol (Vitamin D3) 1,000 Unit Tab PO SCH (09:44)
[2018-06-08] MEDS: Multivitamins,Therapeutic Tab PO SCH (09:44)
[2018-06-08] MEDS: Cyanocobalamin (Vitamin B12) 1,000 MCG Tab PO SCH (09:44)
[2018-06-08] MEDS: Simethicone 80 MG Tab.Chew PO SCH ×4 (09:44→20:35)
--- NOTE | 2018-06-08 12:26 | PN ---
DATE SEEN: 06/08/2018 Carolyne Servin is an 82-year-old female, presently in swing bed. Family conversation in place, discharge plans in order. Concerns about cognition and well being. Discharge under consideration. /[id number] SUJATA/PEDRO
[2018-06-09 03:55] VITALS: BP 112/67
[2018-06-09] MEDS: Levothyroxine 125 MCG Tab PO SCH (06:18)
[2018-06-09] MEDS: Pantoprazole 40 MG Tab.CR PO SCH (06:18)
[2018-06-09] MEDS: Multivitamins,Therapeutic Tab PO SCH (09:06)
[2018-06-09] MEDS: Cyanocobalamin (Vitamin B12) 1,000 MCG Tab PO SCH (09:07)
[2018-06-09] MEDS: Naproxen 250 MG Tab PO SCH (09:07)
[2018-06-09] MEDS: Furosemide 20 MG Tab PO SCH (09:08)
[2018-06-09] MEDS: Sertraline 25 MG Tab PO SCH (09:08)
[2018-06-09] MEDS: Cholecalciferol (Vitamin D3) 1,000 Unit Tab PO SCH (09:09)
[2018-06-09] MEDS: Potassium Chloride 20 MEQ Tab.ER PO SCH (09:09)
[2018-06-09] MEDS: Simethicone 80 MG Tab.Chew PO SCH ×2 (09:09→13:25)
--- NOTE | 2018-06-09 12:56 | DISCH ---
DISCHARGE DATE: 06/08/2018 HOSPITAL COURSE: Carolyne Servin is an 82-year-old female, admitted from acute care to swing bed. Complicating issues are congestive heart failure, declining physical abilities, and need for rehab. During her hospital stay, PT/OT actively involved, attempts for moderating in independence were unsuccessful. Lengthy discussion ensued and intervention for long-term timely and appropriate. Medications reviewed and appropriate. No laboratory studies done, other than urinalysis. PHYSICAL EXAMINATION: VITAL SIGNS: At the time of discharge; 36.6, 84, 112/67, 18, and 93%. GENERAL: Elderly, cooperative, and conversant. Speech was moderate. NECK: Benign. Thyroid small. CHEST: Decreased breath sounds. HEART: Distant heart sounds. Soft murmur. ABDOMEN: Benign. EXTREMITIES: Well perfused. SKIN: No unusual rash. ASSESSMENT: Compensated congestive heart failure and generalized weakness. Resolved urinary tract infection. PLAN: Discharge, transfer to long-term. Complementary care and well being. We will follow up with personal family provider. SURGICAL PROCEDURES: None. CONSULTATIONS: None. /[id number] SUJATA/PEDRO
== END 2018-06-09 09:40 | DRG 948 ==
LOC: FB.MS 10:05
PROVIDERS: ADMIT Family Medicine; ATTEND Family Medicine
DX: R53.1 Weakness (principal); I50.30 Unspecified diastolic (congestive) heart failure; N39.0 Urinary tract infection, site not specified; Z51.5 Encounter for palliative care; I11.0 Hypertensive heart disease with heart failure; E03.9 Hypothyroidism, unspecified; K44.9 Diaphragmatic hernia without obstruction or gangrene; Z87.01 Personal history of pneumonia (recurrent); M54.9 Dorsalgia, unspecified; G89.29 Other chronic pain; H54.7 Unspecified visual loss; Z96.659 Presence of unspecified artificial knee joint; R53.81 Other malaise
CPT/HCPCS: 81001; 94150; 97110-GO; 97110-GP; 97116-GP; 97530-GO; 97530-GP; 97535-GO; A9270-GY; G0515-GO

== ENCOUNTER 2021-03-11 11:55 | Inpatient (IN) | payer MEDICARE, OTHER ==
[2021-03-11] MEDS ORDERED: Non-Formulary Medication 1 Each (Azelastine [Astelin Nasal Soln] 30 ML Bottle) NASBOTH PRN (13:46)
[2021-03-11] MEDS ORDERED: Acetaminophen 500 MG Tab PO PRN (13:46)
[2021-03-11] MEDS ORDERED: DEXTROMETHORPHAN POLISTIREX 30 MG/5 ML PO PRN (13:46)
[2021-03-11] MEDS ORDERED: Albuterol 8 GM Inhaler INH PRN (13:46)
[2021-03-11] MEDS: Carvedilol 3.125 MG Tab PO SCH (17:41)
--- NOTE | 2021-03-11 18:18 | PCM.HP.2 ---
H&P History of Present Illness - General Date of Service: 03/11/21 Admit Problem/Dx: Admission Diagnosis/Problem Admission Diagnosis/Problem Weakness Source of Information: Patient, Old Records History Limitations: Reports: Altered Mental Status - History of Present Illness Initial Comments - Free Text/Narative: Carolyne is an 85-year-old female who was admitted to [facility] on the 04 March with an acute stroke. She had TPA, and unsuccessful mechanical thrombectomy. She had presented with right-sided weakness, and speech disturbance. The symptoms improved over the next few days, and now she is being admitted to [facility] for rehabilitation. She has a history of hypertension, hypothyroidism and dementia at baseline. DENIES ANY PAIN WHEN ASKED AT PRESENT TIME. Pain Score (Numeric/FACES): 0 - Related Data Allergies/Adverse Reactions: Allergies Allergy/AdvReac Type Severity Reaction Status Date / Time No Known Allergies Allergy Verified 05/24/18 12:36 Home Medications: Home Meds Acetaminophen 1,000 mg PO TID PRN 05/24/18 [History] Cholecalciferol (Vitamin D3) [Vitamin D3] 2,000 units PO DAILY 05/24/18 [History] Cyanocobalamin (Vitamin B-12) [Vitamin B-12] 1,000 mcg PO DAILY 05/24/18 [History] Levothyroxine 125 mcg PO DAILY@0600 05/24/18 [History] Nitroglycerin [Nitrostat] 0.4 mg SL Q5M PRN 05/24/18 [History] Omeprazole 20 mg PO DAILY 05/24/18 [History] Potassium Chloride [Klor-Con M20] 20 meq PO DAILY 05/24/18 [History] Sennosides/Docusate Sodium [Senna-S] 1 tab PO DAILY PRN 05/24/18 [History] Sertraline [Zoloft] 25 mg PO DAILY 05/24/18 [History] carvediloL [Coreg] 3.125 mg PO BIDMEALS 06/02/18 [History] Albuterol Sulfate [Albuterol Sulfate Hfa] 1 - 2 puff INH Q6H PRN 03/11/21 [History] Aspirin [Halfprin] 81 mg PO DAILY 03/11/21 [History] Azelastine [Astelin Nasal Soln] 2 spray NASBOTH BID PRN 03/11/21 [History] Clopidogrel [Plavix] 75 mg PO DAILY 03/11/21 [History] Dextromethorphan Polistirex [Delsym] 5 ml PO Q12H PRN 03/11/21 [History] Furosemide [Lasix] 10 mg PO DAILY 03/11/21 [History] Multivitamin/Iron/Folic Acid [Certavite-Antioxidant Tablet] 1 tab PO DAILY 03/11/21 [History] Simethicone 160 mg PO QID 03/11/21 [History] atorvaSTATin Calcium [Lipitor] 10 mg PO BEDTIME 03/11/21 [History] Past Medical History HEENT History: Reports: Impaired Vision Cardiovascular History: Reports: Heart Failure, Hypertension, SOB on Exertion Respiratory History: Reports: COPD, Pneumonia, Recurrent, SOB, Other (See Below) Other Respiratory History: MINOR COPD VOICED FROM DAUGHTERS. 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 PT HAS HISTORY OF DECOMPRESSIVE LUMBAR LAMINECTOMY AND CHRONIC LOWER BACK PAIN Dermatological Surgical History: Reports: None Social & Family History - Family History Family Medical History: No Pertinent Family History - Tobacco Use Tobacco Use Status *Q: Former Tobacco User Years of Tobacco use: 61 Used Tobacco, but Quit: Yes Month/Year Tobacco Last Used: 2013 Second Hand Smoke Exposure: No - Caffeine Use Caffeine Use: Reports: None - Recreational Drug Use Recreational Drug Use: No H&P Review of Systems - Review of Systems: Review Of Systems: Comprehensive ROS is negative, except as noted in HPI. Pulmonary: Reports: Cough Exam - Exam Exam: See Below - Vital Signs Vital Signs: Last Vital Signs Temp 97.7 F 03/11/21 13:05 Pulse 66 03/11/21 17:41 Resp 18 03/11/21 13:05 BP 106/62 01/04/22 17:41 Pulse Ox 93 L 03/11/21 13:05 Weight: 45.813 kg - Exam General: Alert, Cooperative. No: Oriented HEENT: PERRLA Lungs: Crackles, Rales Cardiovascular: Regular Rate GI/Abdominal Exam: Normal Bowel Sounds Back Exam: Normal Inspection Extremities: Normal Inspection. No: Pedal Edema Skin: Warm, Dry Neurological: Strength Equal Bilateral Neuro Extensive - Mental Status: Alert Psychiatric: Alert, Normal Affect Sepsis Event Note - Evaluation Sepsis Screening Result: No Definite Risk - Focused Exam Vital Signs: Vital Signs Temp Pulse Pulse Resp BP BP Pulse Ox 03/11/21 17:41 66 106/62 03/11/21 13:05 97.7 F 93 18 115/67 93 L - Problem List (1) CVA (cerebral vascular accident) SNOMED Code(s): 904171709 ICD Code: I63.9 - CEREBRAL INFARCTION, UNSPECIFIED Status: Acute Current Visit: Yes Qualifiers: Laterality of affected vessel: unspecified (2) Weakness SNOMED Code(s): 99545731 ICD Code: R53.1 - WEAKNESS Status: Acute Current Visit: Yes (3) HTN (hypertension) SNOMED Code(s): 03156535 ICD Code: I10 - ESSENTIAL (PRIMARY) HYPERTENSION Status: Acute Current Visit: Yes Qualifiers: Hypertension type: primary hypertension Qualified Code(s): I10 - Essential (primary) hypertension (4) Hypothyroidism SNOMED Code(s): 88953186 ICD Code: E03.9 - HYPOTHYROIDISM, UNSPECIFIED Status: Acute Current Visit: Yes (5) Dementia SNOMED Code(s): 57957959 ICD Code: F03.90 - UNSPECIFIED DEMENTIA WITHOUT BEHAVIORAL DISTURBANCE Status: Acute Current Visit: Yes Qualifiers: Dementia type: Alzheimer's Dementia behavioral disturbance: without behavioral disturbance (6) H/O CHF SNOMED Code(s): 814523353 ICD Code: Z86.79 - PERSONAL HISTORY OF OTHER DISEASES OF THE CIRCULATORY SYSTEM Status: Acute Current Visit: Yes (7) CAD (coronary artery disease) SNOMED Code(s): 20524174 ICD Code: I25.10 - ATHSCL HEART DISEASE OF [place] CORONARY ARTERY W/O ANG PCTRS Status: Acute Current Visit: Yes Problem List Initiated/Reviewed/Updated: Yes Orders Last 24hrs: Active Orders 24 hr Category Date Time Status Patient Status [ADT] Routine ADT 03/11/21 13:41 Active Height and Weight [RC] .[id number] Care 03/11/21 13:41 Active Oxygen Therapy [RC] PRN Care 03/11/21 13:41 Active RT Aerosol Therapy [RC] ASDIRECTED Care 03/11/21 13:48 Active RT Post Treatment Assessment [RC] Click to Edit Care 03/11/21 13:48 Active Up With Assistance [RC] ASDIRECTED Care 03/11/21 13:41 Active Vital Signs [RC] 0900 Care 03/11/21 13:41 Active OT Evaluation and Treatment [CONS] Routine Cons 03/11/21 13:41 Active PT Evaluation and Treatment [CONS] Routine Cons 03/11/21 13:41 Active Pureed Diet [DIET] Diet 03/11/21 Dinner Active Acetaminophen [Tylenol Extra Strength] Med 03/11/21 13:46 Active 1,000 mg PO TID PRN Albuterol [Ventolin HFA] Med 03/11/21 13:46 Active 0 gm INH Q6H PRN Aspirin [Halfprin] Med 03/12/21 09:00 Active 81 mg PO DAILY Cholecalciferol (Vitamin D3) [Vitamin D3] Med 03/12/21 09:00 Active 50 mcg PO DAILY Clopidogrel [Plavix] Med 03/12/21 09:00 Active 75 mg PO DAILY Cyanocobalamin (Vitamin B12) [Vitamin B12] Med 03/12/21 09:00 Active 1,000 mcg PO DAILY Docusate Sodium/Sennosides [Senna Plus] Med 03/11/21 13:46 Active 1 tab PO DAILY PRN Furosemide [Lasix] Med 03/12/21 09:00 Active 10 mg PO DAILY Levothyroxine Med 03/12/21 06:00 Active 125 mcg PO DAILY@0600 Multivitamins w-Iron/Ca/FA/Min [Thera M Plus] Med 03/12/21 09:00 Active 1 tab PO DAILY Pantoprazole [ProTONIX] Med 03/12/21 09:00 Active 40 mg PO DAILY Potassium Chloride [Klor-Con M20] Med 03/12/21 09:00 Active 20 meq PO DAILY Sertraline [Zoloft] Med 03/12/21 09:00 Active 25 mg PO DAILY Simethicone Med 03/11/21 19:00 Active 160 mg PO QIDPCANDBED atorvaSTATin [Lipitor] Med 03/11/21 21:00 Active 10 mg PO BEDTIME carvediloL [Coreg] Med 03/11/21 18:00 Active 3.125 mg PO BIDMEALS Resuscitation Status Routine Resus Stat 03/11/21 13:41 Ordered Medication Orders Acetaminophen (Acetaminophen 500 Mg Tab) 1,000 mg PO TID PRN PRN Reason: Pain Last Admin: 03/11/21 17:30 Dose: 1,000 mg Documented by: IGNACIA Albuterol (Albuterol 8 Gm Inhaler) 0 gm INH Q6H PRN PRN Reason: Shortness of Breath Last Admin: 03/11/21 17:31 Dose: 2 puff Documented by: IGNACIA Aspirin (Aspirin 81 Mg Tab.Ec) 81 mg PO DAILY [facility] Atorvastatin Calcium (Atorvastatin 10 Mg Tab) 10 mg PO BEDTIME [facility] Carvedilol (Carvedilol 3.125 Mg Tab) 3.125 mg PO BIDMEALS [facility] Last Admin: 03/11/21 17:41 Dose: 3.125 mg Documented by: IGNACIA Cholecalciferol (Cholecalciferol (Vitamin D3) 25 Mcg Tab) 50 mcg PO DAILY [facility] Clopidogrel Bisulfate (Clopidogrel 75 Mg Tab) 75 mg PO DAILY [facility] Cyanocobalamin (Cyanocobalamin (Vitamin B12) 1,000 Mcg Tab) 1,000 mcg PO DAILY [facility] Furosemide (Furosemide 20 Mg Tab) 10 mg PO DAILY [facility] Levothyroxine Sodium (Levothyroxine 125 Mcg Tab) 125 mcg PO DAILY@0600 [facility] Multivitamins/Minerals (Multivitamins With Iron/Calcium/Folic Acid/Minerals Tab) 1 tab PO DAILY [facility] Pantoprazole Sodium (Pantoprazole 40 Mg Tab.Cr) 40 mg PO DAILY [facility] Potassium Chloride (Potassium Chloride 20 Meq Tab.Er) 20 meq PO DAILY [facility] Senna/Docusate Sodium (Docusate Sodium/Sennosides 50-8.6 Mg Tab) 1 tab PO DAILY PRN PRN Reason: Constipation Sertraline HCl (Sertraline 25 Mg Tab) 25 mg PO DAILY [facility] Simethicone (Simethicone 80 Mg Tab.Chew) 160 mg PO QIDPCANDBED [facility] Assessment/Plan Comment:: Admit to swing bed. With routine orders. Consult physical and occupational therapy. Straight When necessary retention. Encourage oral fluid intake.
[2021-03-11] MEDS: Simethicone 80 MG Tab.Chew PO SCH ×2 (18:32→20:39)
[2021-03-11] MEDS: atorvaSTATin 10 MG Tab PO SCH (20:39)
[2021-03-12] MEDS: Levothyroxine 125 MCG Tab PO SCH (05:29)
[2021-03-12] MEDS: Carvedilol 3.125 MG Tab PO SCH ×2 (08:04→17:43)
[2021-03-12] MEDS: Aspirin 81 MG Tab.EC PO SCH (08:04)
[2021-03-12] MEDS: Pantoprazole 40 MG Tab.CR PO SCH (08:05)
[2021-03-12] MEDS: Furosemide 20 MG Tab PO SCH (08:05)
[2021-03-12] MEDS: Simethicone 80 MG Tab.Chew PO SCH ×4 (08:05→21:08)
[2021-03-12] MEDS: Potassium Chloride 20 MEQ Tab.ER PO SCH (08:05)
[2021-03-12] MEDS: Clopidogrel 75 MG Tab PO SCH (08:05)
[2021-03-12] MEDS: Multivitamins with Iron/Calcium/Folic Acid/Minerals Tab PO SCH (08:06)
[2021-03-12] MEDS: Cyanocobalamin (Vitamin B12) 1,000 MCG Tab PO SCH (08:06)
[2021-03-12] MEDS: Cholecalciferol (Vitamin D3) 25 MCG Tab PO SCH (08:06)
[2021-03-12] MEDS: Sertraline 25 MG Tab PO SCH (08:06)
[2021-03-12] MEDS: Formoterol/Mometasone 100-5 MCG 8.8 GM Inhaler IH SCH ×2 (10:15→21:07)
[2021-03-12] MEDS: atorvaSTATin 10 MG Tab PO SCH (21:07)
[2021-03-13] MEDS: Levothyroxine 125 MCG Tab PO SCH (05:05)
[2021-03-13] MEDS: Carvedilol 3.125 MG Tab PO SCH ×2 (08:10→17:42)
[2021-03-13] MEDS: Furosemide 20 MG Tab PO SCH (08:14)
[2021-03-13] MEDS: Aspirin 81 MG Tab.EC PO SCH (08:14)
[2021-03-13] MEDS: Formoterol/Mometasone 100-5 MCG 8.8 GM Inhaler IH SCH ×2 (08:14→20:32)
[2021-03-13] MEDS: Potassium Chloride 20 MEQ Tab.ER PO SCH (08:14)
[2021-03-13] MEDS: Pantoprazole 40 MG Tab.CR PO SCH (08:15)
[2021-03-13] MEDS: Multivitamins with Iron/Calcium/Folic Acid/Minerals Tab PO SCH (08:15)
[2021-03-13] MEDS: Sertraline 25 MG Tab PO SCH (08:15)
[2021-03-13] MEDS: Clopidogrel 75 MG Tab PO SCH (08:15)
[2021-03-13] MEDS: Simethicone 80 MG Tab.Chew PO SCH ×4 (08:15→20:34)
[2021-03-13] MEDS: Cholecalciferol (Vitamin D3) 25 MCG Tab PO SCH (08:16)
[2021-03-13] MEDS: Cyanocobalamin (Vitamin B12) 1,000 MCG Tab PO SCH (08:17)
[2021-03-13] MEDS: atorvaSTATin 10 MG Tab PO SCH (20:33)
[2021-03-14] MEDS: Levothyroxine 125 MCG Tab PO SCH (05:44)
[2021-03-14] MEDS: Carvedilol 3.125 MG Tab PO SCH ×2 (09:29→18:11)
[2021-03-14] MEDS: Clopidogrel 75 MG Tab PO SCH (09:30)
[2021-03-14] MEDS: Aspirin 81 MG Tab.EC PO SCH (09:30)
[2021-03-14] MEDS: Pantoprazole 40 MG Tab.CR PO SCH (09:30)
[2021-03-14] MEDS: Potassium Chloride 20 MEQ Tab.ER PO SCH (09:30)
[2021-03-14] MEDS: Furosemide 20 MG Tab PO SCH (09:30)
[2021-03-14] MEDS: Simethicone 80 MG Tab.Chew PO SCH ×4 (09:30→20:03)
[2021-03-14] MEDS: Formoterol/Mometasone 100-5 MCG 8.8 GM Inhaler IH SCH ×2 (09:30→20:02)
[2021-03-14] MEDS: Sertraline 25 MG Tab PO SCH (09:31)
[2021-03-14] MEDS: Cyanocobalamin (Vitamin B12) 1,000 MCG Tab PO SCH (09:31)
[2021-03-14] MEDS: Multivitamins with Iron/Calcium/Folic Acid/Minerals Tab PO SCH (09:31)
[2021-03-14] MEDS: Cholecalciferol (Vitamin D3) 25 MCG Tab PO SCH (09:31)
[2021-03-14] MEDS: atorvaSTATin 10 MG Tab PO SCH (20:03)
[2021-03-15] MEDS: Levothyroxine 125 MCG Tab PO SCH (05:45)
[2021-03-15] MEDS: Pantoprazole 40 MG Tab.CR PO SCH (08:26)
[2021-03-15] MEDS: Furosemide 20 MG Tab PO SCH (08:27)
[2021-03-15] MEDS: Simethicone 80 MG Tab.Chew PO SCH ×4 (08:27→20:16)
[2021-03-15] MEDS: Sertraline 25 MG Tab PO SCH (08:27)
[2021-03-15] MEDS: Aspirin 81 MG Tab.EC PO SCH (08:27)
[2021-03-15] MEDS: Cholecalciferol (Vitamin D3) 25 MCG Tab PO SCH (08:27)
[2021-03-15] MEDS: Potassium Chloride 20 MEQ Tab.ER PO SCH (08:27)
[2021-03-15] MEDS: Cyanocobalamin (Vitamin B12) 1,000 MCG Tab PO SCH (08:27)
[2021-03-15] MEDS: Multivitamins with Iron/Calcium/Folic Acid/Minerals Tab PO SCH (08:28)
[2021-03-15] MEDS: Formoterol/Mometasone 100-5 MCG 8.8 GM Inhaler IH SCH ×2 (08:28→20:16)
[2021-03-15] MEDS: Clopidogrel 75 MG Tab PO SCH (08:28)
[2021-03-15] MEDS: Carvedilol 3.125 MG Tab PO SCH ×2 (08:28→18:07)
[2021-03-15] MEDS: atorvaSTATin 10 MG Tab PO SCH (20:17)
[2021-03-16] MEDS: Levothyroxine 125 MCG Tab PO SCH (05:45)
[2021-03-16] MEDS: Carvedilol 3.125 MG Tab PO SCH ×2 (08:56→18:01)
[2021-03-16] MEDS: Formoterol/Mometasone 100-5 MCG 8.8 GM Inhaler IH SCH ×2 (08:57→20:32)
[2021-03-16] MEDS: Potassium Chloride 20 MEQ Tab.ER PO SCH (08:57)
[2021-03-16] MEDS: Simethicone 80 MG Tab.Chew PO SCH ×4 (08:57→20:32)
[2021-03-16] MEDS: Aspirin 81 MG Tab.EC PO SCH (08:57)
[2021-03-16] MEDS: Furosemide 20 MG Tab PO SCH (08:58)
[2021-03-16] MEDS: Cyanocobalamin (Vitamin B12) 1,000 MCG Tab PO SCH (08:58)
[2021-03-16] MEDS: Clopidogrel 75 MG Tab PO SCH (08:58)
[2021-03-16] MEDS: Pantoprazole 40 MG Tab.CR PO SCH (08:58)
[2021-03-16] MEDS: Sertraline 25 MG Tab PO SCH (08:59)
[2021-03-16] MEDS: Cholecalciferol (Vitamin D3) 25 MCG Tab PO SCH (08:59)
[2021-03-16] MEDS: Multivitamins with Iron/Calcium/Folic Acid/Minerals Tab PO SCH (08:59)
--- NOTE | 2021-03-16 16:52 | PCM.PN ---
- General Info Date of Service: 03/16/21 Admission Dx/Problem (Free Text): Patient states she is feeling well. She denies chest pain, shortness of breath, trouble swallowing or right-sided weakness. - Patient Data Vitals - Most Recent: Last Vital Signs Temp 97.9 F 03/16/21 09:00 Pulse 82 03/16/21 09:00 Resp 14 03/16/21 09:00 BP 113/71 03/16/21 09:00 Pulse Ox 93 L 03/16/21 09:00 Weight - Most Recent: 101 lb Med Orders - Current: Current Medications Acetaminophen (Acetaminophen 500 Mg Tab) 1,000 mg PO TID PRN PRN Reason: Pain Last Admin: 03/11/21 17:30 Dose: 1,000 mg Documented by: Albuterol (Albuterol 8 Gm Inhaler) 0 gm INH Q6H PRN PRN Reason: Shortness of Breath Last Admin: 03/11/21 17:31 Dose: 2 puff Documented by: Aspirin (Aspirin 81 Mg Tab.Ec) 81 mg PO DAILY [facility] Last Admin: 03/16/21 08:57 Dose: 81 mg Documented by: Atorvastatin Calcium (Atorvastatin 10 Mg Tab) 10 mg PO BEDTIME [facility] Last Admin: 03/15/21 20:17 Dose: 10 mg Documented by: Carvedilol (Carvedilol 3.125 Mg Tab) 3.125 mg PO BIDMEALS [facility] Last Admin: 03/16/21 08:56 Dose: 3.125 mg Documented by: Cholecalciferol (Cholecalciferol (Vitamin D3) 25 Mcg Tab) 50 mcg PO DAILY [facility] Last Admin: 03/16/21 08:59 Dose: 50 mcg Documented by: Clopidogrel Bisulfate (Clopidogrel 75 Mg Tab) 75 mg PO DAILY [facility] Last Admin: 03/16/21 08:58 Dose: 75 mg Documented by: Cyanocobalamin (Cyanocobalamin (Vitamin B12) 1,000 Mcg Tab) 1,000 mcg PO DAILY [facility] Last Admin: 03/16/21 08:58 Dose: 1,000 mcg Documented by: Furosemide (Furosemide 20 Mg Tab) 10 mg PO DAILY [facility] Last Admin: 03/16/21 08:58 Dose: 10 mg Documented by: Levothyroxine Sodium (Levothyroxine 125 Mcg Tab) 125 mcg PO DAILY@0600 [facility] Last Admin: 03/16/21 05:45 Dose: 125 mcg Documented by: Mometasone Furoate/Formoterol Fumar (Formoterol/Mometasone 100-5 Mcg 8.8 Gm Inhaler) 2 puff IH BID [facility] Last Admin: 03/16/21 08:57 Dose: 2 puff Documented by: Multivitamins/Minerals (Multivitamins With Iron/Calcium/Folic Acid/Minerals Tab) 1 tab PO DAILY [facility] Last Admin: 03/16/21 08:59 Dose: 1 tab Documented by: Pantoprazole Sodium (Pantoprazole 40 Mg Tab.Cr) 40 mg PO DAILY [facility] Last Admin: 03/16/21 08:58 Dose: 40 mg Documented by: Potassium Chloride (Potassium Chloride 20 Meq Tab.Er) 20 meq PO DAILY [facility] Last Admin: 03/16/21 08:57 Dose: 20 meq Documented by: Senna/Docusate Sodium (Docusate Sodium/Sennosides 50-8.6 Mg Tab) 1 tab PO DAILY PRN PRN Reason: Constipation Sertraline HCl (Sertraline 25 Mg Tab) 25 mg PO DAILY [facility] Last Admin: 03/16/21 08:59 Dose: 25 mg Documented by: Simethicone (Simethicone 80 Mg Tab.Chew) 160 mg PO QIDPCANDBED [facility] Last Admin: 03/16/21 12:42 Dose: 160 mg Documented by: - Exam General: Alert, Oriented, Cooperative Neck: Supple Lungs: Clear to Auscultation, Normal Respiratory Effort Cardiovascular: Regular Rate, Regular Rhythm, No Murmurs Extremities: Other (Arm and leg strength right side where she had a CVA.) Sepsis Event Note - Evaluation Sepsis Screening Result: No Definite Risk - Focused Exam Vital Signs: Vital Signs Temp Pulse Pulse Resp BP BP Pulse Ox 03/16/21 09:00 97.9 F 82 14 113/71 93 L 03/16/21 08:56 82 113/71 - Problem List & Annotations (1) CAD (coronary artery disease) SNOMED Code(s): 11593088 Code(s): I25.10 - ATHSCL HEART DISEASE OF [place] CORONARY ARTERY W/O ANG PCTRS Status: Acute Current Visit: Yes (2) CVA (cerebral vascular accident) SNOMED Code(s): 013820825 Code(s): I63.9 - CEREBRAL INFARCTION, UNSPECIFIED Status: Acute Current Visit: Yes Qualifiers: Laterality of affected vessel: unspecified (3) Dementia SNOMED Code(s): 97974452 Code(s): F03.90 - UNSPECIFIED DEMENTIA WITHOUT BEHAVIORAL DISTURBANCE Status: Acute Current Visit: Yes Qualifiers: Dementia type: Alzheimer's Dementia behavioral disturbance: without behavioral disturbance (4) H/O CHF SNOMED Code(s): 989197467 Code(s): Z86.79 - PERSONAL HISTORY OF OTHER DISEASES OF THE CIRCULATORY SYSTEM Status: Acute Current Visit: Yes (5) HTN (hypertension) SNOMED Code(s): 10417871 Code(s): I10 - ESSENTIAL (PRIMARY) HYPERTENSION Status: Acute Current Visit: Yes Qualifiers: Hypertension type: primary hypertension Qualified Code(s): I10 - Essential (primary) hypertension (6) Hypothyroidism SNOMED Code(s): 25128366 Code(s): E03.9 - HYPOTHYROIDISM, UNSPECIFIED Status: Acute Current Visit: Yes (7) Weakness SNOMED Code(s): 37205524 Code(s): R53.1 - WEAKNESS Status: Acute Current Visit: Yes (8) CHF (congestive heart failure) SNOMED Code(s): 22967444 Code(s): I50.9 - HEART FAILURE, UNSPECIFIED Status: Acute Current Visit: No - Problem List Review Problem List Initiated/Reviewed/Updated: Yes - My Orders Last 24 Hours: My Active Orders 03/17/21 06:00 CORONAVIRUS COVID-19 JESSICA [MOLEC] Routine - Plan Plan:: 1. Evaluate how long she needs to be here. She felt today she could use a couple more days. I told her and her daughter that PT/OT/social work will discuss this with them in the a.m.
[2021-03-16] MEDS: atorvaSTATin 10 MG Tab PO SCH (20:32)
[2021-03-17] MEDS: Levothyroxine 125 MCG Tab PO SCH (05:45)
[2021-03-17] MEDS: Furosemide 20 MG Tab PO SCH (08:00)
[2021-03-17] MEDS: Sertraline 25 MG Tab PO SCH (08:00)
[2021-03-17] MEDS: Potassium Chloride 20 MEQ Tab.ER PO SCH (08:00)
[2021-03-17] MEDS: Multivitamins with Iron/Calcium/Folic Acid/Minerals Tab PO SCH (08:00)
[2021-03-17] MEDS: Clopidogrel 75 MG Tab PO SCH (08:00)
[2021-03-17] MEDS: Carvedilol 3.125 MG Tab PO SCH ×2 (08:00→18:10)
[2021-03-17] MEDS: Aspirin 81 MG Tab.EC PO SCH (08:00)
[2021-03-17] MEDS: Cyanocobalamin (Vitamin B12) 1,000 MCG Tab PO SCH (08:00)
[2021-03-17] MEDS: Pantoprazole 40 MG Tab.CR PO SCH (08:00)
[2021-03-17] MEDS: Simethicone 80 MG Tab.Chew PO SCH ×4 (08:00→20:44)
[2021-03-17] MEDS: Cholecalciferol (Vitamin D3) 25 MCG Tab PO SCH (08:01)
[2021-03-17] MEDS: Formoterol/Mometasone 100-5 MCG 8.8 GM Inhaler IH SCH ×2 (08:01→20:44)
[2021-03-17] MEDS: atorvaSTATin 10 MG Tab PO SCH (20:43)
[2021-03-18] MEDS: Levothyroxine 125 MCG Tab PO SCH (06:09)
[2021-03-18] MEDS: Carvedilol 3.125 MG Tab PO SCH (07:02)
--- NOTE | 2021-03-18 08:43 | PCM.DCSUM1 ---
Discharge Summary - Hospital Course Free Text/Narrative:: Hospital course-patient was admitted for swing bed for PT/OT. She did quite well and progressed nicely. She required no interventions from the hospitalist. She will be transferred and sent home to [facility] with PT/OT, home health. Brief History: Carolyne is an 85-year-old female who was admitted to [facility] on the 04 March with an acute stroke. She had TPA, and unsuccessful mechanical thrombectomy. She had presented with right-sided weakness, and speech disturbance. The symptoms improved over the next few days, and now she is being admitted to swing bed for rehabilitation. She has a history of hypertension, hypothyroidism and dementia at baseline Diagnosis: Stroke: No - Discharge Data Discharge Date: 03/18/21 Discharge Disposition: DC/Tfer to [facility] Condition: Fair - Referral to Home Health Date of Face to Face Encounter: 03/18/21 Reason for Homebound Status: CVA Primary Care Physician: NICOLAS Abbott Skilled Need: PT/OT/nursing skilled care for medication management, home safety, disease teaching - Discharge Diagnosis/Problem(s) (1) CAD (coronary artery disease) SNOMED Code(s): 18064395 ICD Code: I25.10 - ATHSCL HEART DISEASE OF [place] CORONARY ARTERY W/O ANG PCTRS Status: Acute Current Visit: Yes (2) CVA (cerebral vascular accident) SNOMED Code(s): 893363792 ICD Code: I63.9 - CEREBRAL INFARCTION, UNSPECIFIED Status: Acute Current Visit: Yes Qualifiers: Laterality of affected vessel: unspecified (3) Dementia SNOMED Code(s): 99745979 ICD Code: F03.90 - UNSPECIFIED DEMENTIA WITHOUT BEHAVIORAL DISTURBANCE Status: Acute Current Visit: Yes Qualifiers: Dementia type: Alzheimer's Dementia behavioral disturbance: without behavioral disturbance (4) H/O CHF SNOMED Code(s): 865982967 ICD Code: Z86.79 - PERSONAL HISTORY OF OTHER DISEASES OF THE CIRCULATORY SYSTEM Status: Acute Current Visit: Yes (5) HTN (hypertension) SNOMED Code(s): 56412870 ICD Code: I10 - ESSENTIAL (PRIMARY) HYPERTENSION Status: Acute Current Visit: Yes Qualifiers: Hypertension type: primary hypertension Qualified Code(s): I10 - Essential (primary) hypertension (6) Hypothyroidism SNOMED Code(s): 47887034 ICD Code: E03.9 - HYPOTHYROIDISM, UNSPECIFIED Status: Acute Current Visit: Yes (7) Weakness SNOMED Code(s): 25331233 ICD Code: R53.1 - WEAKNESS Status: Acute Current Visit: Yes (8) CHF (congestive heart failure) SNOMED Code(s): 85565761 ICD Code: I50.9 - HEART FAILURE, UNSPECIFIED Status: Acute Current Visit: No - Patient Summary/Data Consults: Consultations 03/11/21 13:41 OT Evaluation and Treatment [CONS] Routine Please Evaluate and Treat. OT Reason for Consult: ADL's This query below is only for informational purposes and is not editable. PT Evaluation and Treatment [CONS] Routine Please Evaluate and Treat. PT Reason for Consult: Ambulation This query below is only for informational purposes and is not editable. - Patient Instructions Diet: Regular Diet as Tolerated Activity: As Tolerated Driving: Do Not Drive Showering/Bathing: May Shower Other/Special Instructions: 1. Home health with PT/OT. 2. Recheck with Ryan De La Paz in 1 week. - Discharge Plan Home Medications: Home Meds Acetaminophen 1,000 mg PO TID PRN 05/24/18 [History] Cholecalciferol (Vitamin D3) [Vitamin D3] 2,000 units PO DAILY 05/24/18 [History] Cyanocobalamin (Vitamin B-12) [Vitamin B-12] 1,000 mcg PO DAILY 05/24/18 [History] Levothyroxine 125 mcg PO DAILY@0600 05/24/18 [History] Nitroglycerin [Nitrostat] 0.4 mg SL Q5M PRN 05/24/18 [History] Omeprazole 20 mg PO DAILY 05/24/18 [History] Potassium Chloride [Klor-Con M20] 20 meq PO DAILY 05/24/18 [History] Sennosides/Docusate Sodium [Senna-S] 1 tab PO DAILY PRN 05/24/18 [History] Sertraline [Zoloft] 25 mg PO DAILY 05/24/18 [History] carvediloL [Coreg] 3.125 mg PO BIDMEALS 06/02/18 [History] Albuterol Sulfate [Albuterol Sulfate Hfa] 1 - 2 puff INH Q6H PRN 03/11/21 [History] Aspirin [Halfprin] 81 mg PO DAILY 03/11/21 [History] Azelastine [Astelin Nasal Soln] 2 spray NASBOTH BID PRN 03/11/21 [History] Clopidogrel [Plavix] 75 mg PO DAILY 03/11/21 [History] Dextromethorphan Polistirex [Delsym] 5 ml PO Q12H PRN 03/11/21 [History] Furosemide [Lasix] 10 mg PO DAILY 03/11/21 [History] Multivitamin/Iron/Folic Acid [Certavite-Antioxidant Tablet] 1 tab PO DAILY 03/11/21 [History] Simethicone 160 mg PO QID 03/11/21 [History] atorvaSTATin Calcium [Lipitor] 10 mg PO BEDTIME 03/11/21 [History] Fluticasone Propion/Salmeterol [Advair Hfa 45-21 Mcg Inhaler] 2 puff IH BID 03/12/21 [History] Patient Handouts: Heart Failure, Self-Care, [id number], Fall Prevention in Hospitals, Adult, Venous Thromboembolism Prevention - Discharge Summary/Plan Comment DC Time >30 min.: No Total # of Minutes for Discharge Time: 10 minutes - Patient Data Vitals - Most Recent: Last Vital Signs Temp 98.1 F 03/18/21 06:29 Pulse 84 03/18/21 07:02 Resp 14 03/18/21 06:29 BP 124/60 03/18/21 07:02 Pulse Ox 94 L 03/18/21 06:29 Weight - Most Recent: 101 lb Med Orders - Current: Current Medications Acetaminophen (Acetaminophen 500 Mg Tab) 1,000 mg PO TID PRN PRN Reason: Pain Last Admin: 03/11/21 17:30 Dose: 1,000 mg Documented by: Albuterol (Albuterol 8 Gm Inhaler) 0 gm INH Q6H PRN PRN Reason: Shortness of Breath Last Admin: 03/11/21 17:31 Dose: 2 puff Documented by: Aspirin (Aspirin 81 Mg Tab.Ec) 81 mg PO DAILY [facility] Last Admin: 03/17/21 08:00 Dose: 81 mg Documented by: Atorvastatin Calcium (Atorvastatin 10 Mg Tab) 10 mg PO BEDTIME [facility] Last Admin: 03/17/21 20:43 Dose: 10 mg Documented by: Carvedilol (Carvedilol 3.125 Mg Tab) 3.125 mg PO BIDMEALS [facility] Last Admin: 03/18/21 07:02 Dose: 3.125 mg Documented by: Cholecalciferol (Cholecalciferol (Vitamin D3) 25 Mcg Tab) 50 mcg PO DAILY [facility] Last Admin: 03/17/21 08:01 Dose: 50 mcg Documented by: Clopidogrel Bisulfate (Clopidogrel 75 Mg Tab) 75 mg PO DAILY [facility] Last Admin: 03/17/21 08:00 Dose: 75 mg Documented by: Cyanocobalamin (Cyanocobalamin (Vitamin B12) 1,000 Mcg Tab) 1,000 mcg PO DAILY [facility] Last Admin: 03/17/21 08:00 Dose: 1,000 mcg Documented by: Furosemide (Furosemide 20 Mg Tab) 10 mg PO DAILY [facility] Last Admin: 03/17/21 08:00 Dose: 10 mg Documented by: Levothyroxine Sodium (Levothyroxine 125 Mcg Tab) 125 mcg PO DAILY@0600 [facility] Last Admin: 03/18/21 06:09 Dose: 125 mcg Documented by: Mometasone Furoate/Formoterol Fumar (Formoterol/Mometasone 100-5 Mcg 8.8 Gm Inhaler) 2 puff IH BID [facility] Last Admin: 03/17/21 20:44 Dose: 2 puff Documented by: Multivitamins/Minerals (Multivitamins With Iron/Calcium/Folic Acid/Minerals Tab) 1 tab PO DAILY [facility] Last Admin: 03/17/21 08:00 Dose: 1 tab Documented by: Pantoprazole Sodium (Pantoprazole 40 Mg Tab.Cr) 40 mg PO DAILY [facility] Last Admin: 03/17/21 08:00 Dose: 40 mg Documented by: Potassium Chloride (Potassium Chloride 20 Meq Tab.Er) 20 meq PO DAILY [facility] Last Admin: 03/17/21 08:00 Dose: 20 meq Documented by: Senna/Docusate Sodium (Docusate Sodium/Sennosides 50-8.6 Mg Tab) 1 tab PO DAILY PRN PRN Reason: Constipation Sertraline HCl (Sertraline 25 Mg Tab) 25 mg PO DAILY [facility] Last Admin: 03/17/21 08:00 Dose: 25 mg Documented by: Simethicone (Simethicone 80 Mg Tab.Chew) 160 mg PO QIDPCANDBED [facility] Last Admin: 03/17/21 20:44 Dose: 160 mg Documented by:
[2021-03-18 09:07] VITALS: BP 89/56; PULSE 86
[2021-03-18] MEDS: Formoterol/Mometasone 100-5 MCG 8.8 GM Inhaler IH SCH (09:17)
[2021-03-18] MEDS: Aspirin 81 MG Tab.EC PO SCH (09:18)
[2021-03-18] MEDS: Potassium Chloride 20 MEQ Tab.ER PO SCH (09:19)
[2021-03-18] MEDS: Clopidogrel 75 MG Tab PO SCH (09:20)
[2021-03-18] MEDS: Simethicone 80 MG Tab.Chew PO SCH (09:20)
[2021-03-18] MEDS: Pantoprazole 40 MG Tab.CR PO SCH (09:20)
[2021-03-18] MEDS: Furosemide 20 MG Tab PO SCH (09:20)
[2021-03-18] MEDS: Cyanocobalamin (Vitamin B12) 1,000 MCG Tab PO SCH (09:21)
[2021-03-18] MEDS: Multivitamins with Iron/Calcium/Folic Acid/Minerals Tab PO SCH (09:21)
[2021-03-18] MEDS: Cholecalciferol (Vitamin D3) 25 MCG Tab PO SCH (09:22)
[2021-03-18] MEDS: Sertraline 25 MG Tab PO SCH (09:22)
== END 2021-03-18 09:50 | DRG 948 ==
LOC: FB.MS 13:01
PROVIDERS: ADMIT Family Medicine; ATTEND Family Medicine
DX: R53.1 Weakness (principal); I69.351 Hemiplegia and hemiparesis following cerebral infarction affecting right dominant side; G30.9 Alzheimer's disease, unspecified; F02.80 Dementia in other diseases classified elsewhere, unspecified severity, without behavioral disturbance, psychotic disturbance, mood disturbance, and anxiety; I11.0 Hypertensive heart disease with heart failure; I50.9 Heart failure, unspecified; E03.9 Hypothyroidism, unspecified; J44.9 Chronic obstructive pulmonary disease, unspecified; Z66 Do not resuscitate; Z20.822 Contact with and (suspected) exposure to COVID-19; K21.9 Gastro-esophageal reflux disease without esophagitis; H54.7 Unspecified visual loss; Z96.659 Presence of unspecified artificial knee joint; I25.10 Atherosclerotic heart disease of native coronary artery without angina pectoris; Z87.01 Personal history of pneumonia (recurrent); Z90.49 Acquired absence of other specified parts of digestive tract; Z79.82 Long term (current) use of aspirin; Z79.890 Hormone replacement therapy; Z79.899 Other long term (current) drug therapy; Z87.891 Personal history of nicotine dependence
CPT/HCPCS: 97161-GP; 97166-GO; 97530-GO; 97530-GP; 97535-GO; A9270-GY; U0002